=== PATIENT | female | born 1985 | race American Indian/Alaskan Native ===

== ENCOUNTER 2017-05-15 02:53 | Emergency (ER) | payer SELFPAY ==
[2017-05-15 02:58] VITALS: BP 138/92
[2017-05-15 04:23] LABS: Basophils % (Auto) 0.8 % (0.0-1.8); Eosinophils # (Auto) 0.1 K/mm3 (0.0-0.4); Eosinophils % (Auto) 1.6 % (0.0-4.3); Hemoglobin 12.2 gm/dl (10.1-14.3); Lymphocytes # (Auto) 1.9 K/mm3 (1.2-5.4); Lymphocytes % (Auto) 33.2 % (13.4-35.0); Mean Corpuscular HGB Conc 34 % (30-34); Mean Corpuscular Hemoglobin 33 pg (28-32); Mean Corpuscular Volume 97 fl (79-97); Monocytes # (Auto) 0.4 K/mm3 (0.0-0.8); Monocytes % (Auto) 7.3 % (0.0-7.3); Platelet Count 300 K/mm3 (140-440); Red Blood Count 3.72 M/mm3 (3.65-5.03); Red Cell Distribution Width 13.6 % (13.2-15.2)
[2017-05-15 07:55] LABS: Bacteria,Urine 1+ /HPF (Negative); Bilirubin,Urine NEG (Negative); Blood,Urine NEG (Negative); Color,Urine Colorless (Yellow); Nitrite,Urine NEG (Negative); Protein,Urine <15 mg/dL mg/dL (Negative); Urobilinogen,Urine < 2.0 mg/dL (<2.0)
== END 2017-05-15 05:07 | disposition left against medical advice (07) ==
LOC: ED 02:53
DX: R10.9 Unspecified abdominal pain (principal); Z53.21 Procedure and treatment not carried out due to patient leaving prior to being seen by health care provider
CPT/HCPCS: 36415; 81001; 84702; 85025; 86850; 86900; 86901

== ENCOUNTER 2021-07-04 21:54 | Inpatient (IN) | payer OTHER ==
[2021-07-04] MEDS ORDERED: LACTATED RINGERS 1,000 ML IV SCH (22:15)
[2021-07-04] MEDS ORDERED: ACETAMINOPHEN 325 MG TAB PO PRN (22:15)
[2021-07-04] MEDS ORDERED: LOPERAMIDE 2 MG CAP PO PRN (22:15)
[2021-07-04] MEDS ORDERED: BUTORPHANOL 2 MG/1 ML INJ IV PRN (22:15)
[2021-07-04] MEDS ORDERED: fentaNYL 100 MCG/2 ML INJ IV PRN (22:15)
[2021-07-04] MEDS ORDERED: MINERAL OIL 30 ML ORAL LIQD PO PRN (22:15)
[2021-07-04] MEDS ORDERED: LACTATED RINGERS 1,000 ML ONE (22:15)
[2021-07-04] MEDS ORDERED: OXYTOCIN 10 UNIT/1 ML INJ IM PRN (22:15)
[2021-07-04] MEDS ORDERED: METHYLERGONOVINE MALEATE 0.2 MG/ML VIAL IM PRN (22:15)
[2021-07-04] MEDS ORDERED: ePHEDrine SULFATE 50 MG/1 ML INJ IV PRN (22:15)
[2021-07-04] MEDS ORDERED: miSOPROStol 200 MCG TAB PR PRN (22:15)
[2021-07-04] MEDS ORDERED: LIDOCAINE (2%) 20 MG/1 ML VIAL 20 ML MDV INFILTRATI ONE (22:15)
[2021-07-04] MEDS ORDERED: TERBUTALINE 1 MG/1 ML INJ SUB-Q PRN (22:15)
[2021-07-04] MEDS ORDERED: OXYTOCIN DRIP 30,000 MILLIUNITS/500 ML BAG IV ONE (22:15)
[2021-07-04] MEDS ORDERED: CARBOPROST TROMETHAMINE 250 MCG/1 ML INJ IM PRN (22:15)
--- NOTE | 2021-07-04 22:56 | History and Physical Report ---
History of Present Illness Date of examination: 07/04/21 Date of admission: 07/04/21 Chief complaint: Painful ctxs History of present illness: 89 yo, @ 39.2 wks, initiated care with [place] [facility] @ 13wks gestation. Her care has been complicated by inadequate care with only 2 visits (lapse between 13 - 35 wks), HSV2, anemia and history of C/S x 1 with two . She presented to [facility] via medic with reports of frequent painful ctxs and was found to have advanced cervical dilation of 10. Reports positive FM. Denies VB or LOF. Labs: A+, antibody negative; rubella immune; VDRL non-reactive; urine culture negative; HBsAg negative HIV negative; Hep C negative; GC/Chlamydia/Trich negative; 1 hr gtt 109; GBS unknown. Past History Past Medical History: other (anemia) Past Surgical History: section [employer]IAN History: chlamydia, herpes Family/Genetic History: diabetes, hypertension, cancer, other (kidney failure, hypercholesterolemia; arthritis) - Obstetrical History Expected Date of Delivery: 07/09/21 Actual Gestation: 39 Week(s) 2 Day(s) : 6 Para: 3 Hx # Term Pregnancies: 3 Number of Pregnancies: 0 Spontaneous Abortions: 2 Induced : 0 Number of Living Children: 3 #1 Infant Gender: Male year: 2,[birth year] Birthweight: 3.77 kg Method of Delivery: Vaginal Complications: none #2 Infant Gender: Male year: 2,014 Birthweight: 3.09 kg Method of Delivery: Vaginal Gestational age at delivery: 37 Complications: none #3 Gender: Male year: 2,018 Birthweight: 2.92 kg Method of Delivery: Medications and Allergies Allergies Allergy/AdvReac Type Severity Reaction Status Date / Time No Known Allergies Allergy Verified 12/22/13 13:48 Home Medications Medication Instructions Recorded Confirmed Last Taken Type Valacyclovir HCl [Valacyclovir] 1 tab PO BID 12/22/13 11/08/17 12/22/13 14:30 History Ferrous Sulfate [Feosol 325 MG tab] 325 mg PO BID #60 tablet 12/23/13 11/08/17 Unknown Rx Ibuprofen [Motrin 600 MG tab] 600 mg PO Q6HR PRN #30 tablet 12/23/13 11/08/17 Unknown Rx Vits96/Iron Fum/Folic 1 each PO QDAY #30 tablet 12/23/13 11/08/17 11/07/17 10:30 Rx [ Tablet] oxyCODONE /ACETAMINOPHEN [Percocet 1 tab PO Q6H PRN #30 tablet 12/23/13 11/08/17 Unknown Rx 5/325 mg] Ferrous Sulfate 325 mg PO BID #60 tablet. 11/08/17 Unknown Rx Ibuprofen [Motrin] 600 mg PO Q8H PRN #30 tablet 11/08/17 Unknown Rx oxyCODONE /ACETAMINOPHEN [Percocet 1 tab PO Q6HR PRN #30 tablet 11/08/17 Unknown Rx 5/325] Docusate Sodium [Colace] 100 mg PO BID PRN #60 capsule 11/10/17 Unknown Rx Ferrous Sulfate [Feosol 325 MG tab] 325 mg PO BID #60 tablet 11/10/17 Unknown Rx Ibuprofen [Motrin] 800 mg PO Q8HR PRN #60 tablet 11/10/17 Unknown Rx oxyCODONE /ACETAMINOPHEN [Percocet 1 tab PO Q6HR PRN #45 tablet 11/10/17 Unknown Rx 5/325] Active Meds: Active Medications Acetaminophen (Acetaminophen 325 Mg Tab) 650 mg PO Q4H PRN PRN Reason: Pain, Mild (1-3) Butorphanol Tartrate (Butorphanol 2 Mg/1 Ml Inj) 1 mg IV Q2H PRN PRN Reason: Pain, Moderate(4-6) LABOR PAIN Carboprost Tromethamine (Carboprost Tromethamine 250 Mcg/1 Ml Inj) 250 mcg IM ONCE PRN PRN Reason: Uterine Bleeding Ephedrine Sulfate (Ephedrine Sulfate 50 Mg/1 Ml Inj) 10 mg IV Q2M PRN PRN Reason: Hypotension Fentanyl (Fentanyl 100 Mcg/2 Ml Inj) 100 mcg IV Q2H PRN PRN Reason: Pain,Severe (7-10) LABOR PAIN Oxytocin/Sodium Chloride (Pitocin/Ns 30 Unit/500ml) 30 units in 500 mls @ 2 mls/hr IV TITR ROMY; Protocol Lactated Ringer's (Lactated Ringers) 1,000 mls @ 125 mls/hr IV DIRECT ROMY Oxytocin/Sodium Chloride (Pitocin/Ns 30 Unit/500ml) 30 units in 500 mls @ 40 mls/hr IV TITR ROMY; Protocol Loperamide HCl (Loperamide 2 Mg Cap) 2 mg PO ONCE PRN PRN Reason: give with Hemabate Methylergonovine Maleate (Methylergonovine Maleate 0.2 Mg/Ml Vial) 0.2 mg IM ONCE PRN PRN Reason: Uterine Bleeding Mineral Oil (Mineral Oil 30 Ml Oral Liqd) 30 ml PO QHS PRN PRN Reason: Constipation Misoprostol (Misoprostol 200 Mcg Tab) 800 mcg VA ONCE PRN PRN Reason: Uterine Bleeding Oxytocin (Oxytocin 10 Unit/1 Ml Inj) 10 unit IM ONCE PRN PRN Reason: Uterine Bleeding Terbutaline Sulfate (Terbutaline 1 Mg/1 Ml Inj) 0.25 mg SUB-Q ONCE PRN PRN Reason: Hyperstimulation/Hypertonicity - Vital Signs Vital signs: Vital Signs Pulse Pulse Ox 106 H 97 07/04/21 22:08 07/04/21 22:08 Temp Pulse Resp BP Pulse Ox 96 H 127/76 97 07/04/21 22:48 07/04/21 22:48 07/04/21 22:48 - Physical Exam Breasts: Positive: normal Cardiovascular: Regular rate Lungs: Positive: Normal air movement Genitourinary (Female): Positive: normal external genitalia, normal perenium Uterus: Positive: enlarged Extremities: Positive: edema Deep Tendon Reflex Grade: Normal +2 Results All other labs normal. Assessment and Plan - Patient Problems (1) Active labor at term Current Visit: Yes Status: Acute Plan to address problem: Admit to L&D Pain meds as desired Anticipate (2) GBS screening not performed Current Visit: Yes Status: Acute Plan to address problem: Inadequate treatment (3) HSV-2 seropositive Current Visit: Yes Status: Acute Plan to address problem: No lesions or prodrome noted
[2021-07-04] MEDS ORDERED: OXYTOCIN DRIP 30 UNITS/500 ML BAG IV SCH ×2 (23:00)
[2021-07-04] MEDS ORDERED: LANOLIN/ZINC/DIMETHICONE (LANSINOH) 7 GM TP PRN (23:04)
[2021-07-04] MEDS ORDERED: ONDANSETRON 4 MG/2 ML INJ IV PRN (23:04)
[2021-07-04] MEDS ORDERED: oxyCODONE /ACETAMINOPHEN 5-325MG TAB PO PRN (23:04)
[2021-07-04] MEDS ORDERED: WITCH HAZEL/ GLYCERIN PAD TP PRN (23:04)
[2021-07-04] MEDS ORDERED: MAGNESIUM HYDROXIDE (MOM) ORAL LIQD UDC PO PRN (23:04)
[2021-07-04] MEDS ORDERED: diphenhydrAMINE 25 MG CAP PO PRN (23:04)
[2021-07-04] MEDS ORDERED: PROMETHAZINE 25 MG TAB PO PRN (23:04)
--- NOTE | 2021-07-04 23:12 | Procedure Note ---
OB Delivery Note - Delivery Date of Delivery: 07/04/21 (2234) Surgeon: NAHUM CERVANTES (ANDERSONM) Estimated blood loss: 200cc - Vaginal Delivery presentation: vertex Delivery position: OA (CHINA) Intrapartum events: meconium, precipitous labor- <3hr Delivery induction: none Delivery augmentation: rupture of membranes (AROM @ 2230, thick meconium) Delivery monitor: external FHT, external uterine Route of delivery: Delivery placenta: spontaneous (2238, hi) Delivery cord: 3 umbilical vessels Episiotomy: none Delivery laceration: none Anesthesia: none Delivery comments: of viable, meconium stained, quiet female infant. Spontaneous cry produced with drying and manual stimulation. Cord double clamped and cut by myself, baby handed over to awaiting MARTHA nurse. Placenta spontaneously delivered, hi, disposed per hospital policy. Uterus firm @ U-2, hemostasis maintained. Perineum intact. Mother and baby safe, stable and left in care of RN. - A at 1 minute: 8 at 5 minutes: 9 Infant Gender: Female (Weight: 3100 gms (6lbs 13 ozs) 20 inches)
[2021-07-04] MEDS: IBUPROFEN 800 MG TAB PO SCH (23:18)
[2021-07-05 01:10] LABS: Hematocrit 31.3 % (30.3-42.9); Mean Corpuscular HGB Conc 32 % (30-34); Mean Corpuscular Volume 89 fl (79-97); Platelet Count 231 K/mm3 (140-440); Red Blood Count 3.51 M/mm3 (3.65-5.03); Red Cell Distribution Width 15.3 % (13.2-15.2)
[2021-07-05] MEDS: IBUPROFEN 800 MG TAB PO SCH ×4 (06:25→23:45)
--- NOTE | 2021-07-05 09:01 | Progress Note ---
Assessment and Plan - Patient Problems (1) Vaginal after Current Visit: Yes Status: Acute Plan to address problem: Patient doing well Routine care Subjective - Subjective Date of service: 07/05/21 Interval history: Patient doing well. She is currently without any complaints. Pain is well controlled. Patient reports: appetite normal, voiding normally, pain well controlled [place]: doing well Objective - Vital Signs Latest vital signs: Vital Signs Temp Pulse Resp BP BP Pulse Ox 07/05/21 06:25 18 07/05/21 04:40 98.0 F 83 20 130/77 96 07/05/21 02:04 18 07/04/21 23:38 94 H 99 07/04/21 23:33 91 H 98 07/04/21 23:28 89 138/86 98 07/04/21 23:23 93 H 100 07/04/21 23:18 97.4 F L 93 H 19 99 07/04/21 23:13 94 H 99 07/04/21 23:08 98 H 139/78 98 07/04/21 23:03 98 H 97 07/04/21 22:58 97 H 96 07/04/21 22:53 98 H 98 07/04/21 22:48 96 H 127/76 97 07/04/21 22:43 98 H 98 07/04/21 22:38 94 H 98 07/04/21 22:33 88 100 07/04/21 22:28 88 98 07/04/21 22:23 97 H 99 07/04/21 22:18 99 H 99 07/04/21 22:13 102 H 98 07/04/21 22:11 112 H 125/90 07/04/21 22:08 106 H 97 Intake and Output 07/04/21 07/05/21 07/05/21 22:59 06:59 14:59 Intake Total 120 Output Total 400 150 Balance -280 -150 Intake: Oral 120 Output: Urine 400 150 Void 400 150 Other: Total, Intake Amount 120 Total, Output Amount 200 150 Weight 91.626 kg Estimated Blood Loss 200 - Labs Labs: Abnormal lab results 07/04/21 Range/Units 22:08 RBC 3.51 L (3.65-5.03) M/mm3 Hgb 10.0 L (10.1-14.3) gm/dl RDW 15.3 H (13.2-15.2) %
[2021-07-05] MEDS: PRENATAL VIT27-FE FUMARATE-FOLIC ACID VIT TAB PO SCH (10:37)
[2021-07-05 13:15] LABS: Hemoglobin 9.5 gm/dl (10.1-14.3)
[2021-07-06] MEDS: IBUPROFEN 800 MG TAB PO SCH ×3 (05:12→18:12)
[2021-07-06] MEDS ORDERED: TETANUS,DIPH,PERTUSS(ACELL) VACCINE 0.5 ML SYRINGE IM ONE (06:00)
[2021-07-06] MEDS: PRENATAL VIT27-FE FUMARATE-FOLIC ACID VIT TAB PO SCH (10:28)
[2021-07-06] MEDS ORDERED: FLU VACC QUAD 2021-22(6MOS UP)/PF 60 MCG/0.5 ML SYRINGE IM ONE (12:00)
--- NOTE | 2021-07-06 14:13 | Discharge Summary ---
Providers - Providers Date of Admission: 07/04/21 22:15 Date of discharge: 07/06/21 (1900) Attending physician: DAYTON OSEGUERA 07/04/21 23:06 Consult to [employer] [place] [CONS] Routine Reason For Exam: assistance with , ELIZABETH 07/05/21 07:24 Consult to Case Management [CONS] Routine Services Needed at Discharge: Other Notified:: Yes Comment:: limited [facility] Primary care physician: DAYTON OSEGUERA Hospitalization Reason for admission: active labor Delivery: Episiotomy: none Laceration: none Other procedures: none complications: none Discharge diagnosis: other (anemia), baby: female Hospital course: 36 yo, @ 39.2 wks, initiated care with [place] [facility] @ 13wks gestation. Her care has been complicated by inadequate care with only 2 visits (lapse between 13 - 35 wks), HSV2, anemia and history of C/S x 1 with two . She presented to [facility] via medic with reports of frequent painful ctxs and was found to have advanced cervical dilation of 10. Reports positive FM. Denies VB or LOF. Delivered viable famale via . course has been uneventful and has met discharge criteria on PPD#2. Condition at discharge: Good Disposition: 01 HOME / SELF CARE / HOMELESS - Discharge Diagnoses (1) GBS screening not performed Status: Acute (2) HSV-2 seropositive Status: Acute (3) Vaginal after Status: Acute Plan - Discharge Medications Prescriptions: Ibuprofen [Motrin 800 MG tab] 800 mg PO Q8HR 7 Days #21 tablet - Provider Discharge Summary Activity: routine, no sex for 6 weeks, no heavy lifting 4 weeks, no strenuous exercise Diet: other (Iron rich diet) Instructions: routine Additional instructions: [] Smoking cessation referral if applicable(refer to patient education folder for contact #) [] Refer to [facility] Booklet Call your doctor immediately for: * Fever > 100.5 * Heavy vaginal bleeding ( >1 pad per hour) * Severe persistent headache * Shortness of breath * Reddened, hot, painful area to leg or breast - Follow up plan Follow up: DAYTON OSEGUERA MD [Primary Care Provider] - 6 Weeks Forms: [facility] Discharge Summary
[2021-07-06 22:59] VITALS: BP 138/78
== END 2021-07-06 23:50 | disposition home or self-care (01) | DRG 774 ==
LOC: TRG 21:54 → APU 21:56 → LD 22:04 → TRG 22:15 → OB 07-05 00:50
PROVIDERS: ADMIT Obstetrics & Gynecology; ATTEND Obstetrics & Gynecology
PROC: 10E0XZZ Delivery of Products of Conception, External Approach (ICD-10-PCS; principal; 2021-07-04)
PROC: 3E0234Z Introduction of Serum, Toxoid and Vaccine into Muscle, Percutaneous Approach (ICD-10-PCS; 2021-07-06)
DX: O77.0 Labor and delivery complicated by meconium in amniotic fluid (principal); O98.32 Other infections with a predominantly sexual mode of transmission complicating childbirth; Z37.0 Single live birth; Z3A.39 39 weeks gestation of pregnancy; A60.00 Herpesviral infection of urogenital system, unspecified; O62.3 Precipitate labor; O99.02 Anemia complicating childbirth; O34.211 Maternal care for low transverse scar from previous cesarean delivery; Z23 Encounter for immunization
CPT/HCPCS: 36415; 59025; 85014; 85018; 85027; 86592; 86850; 86900; 86901; 90471; 90686; 90715; G0378; G0008; U0003

== ENCOUNTER 2021-07-12 03:55 | Inpatient (IN) | payer OTHER ==
[2021-07-12] MEDS ORDERED: predniSONE 20 MG TAB PO ONE (04:07)
[2021-07-12] MEDS ORDERED: IPRATROPIUM/ALBUTEROL SULFATE 3 ML AMPUL.NEB IH ONE (04:07)
--- NOTE | 2021-07-12 04:11 | Emergency Department Report ---
<GRISEL WILSON - Last Filed: 07/12/21 14:28> ED Shortness of Breath HPI - General Chief Complaint: Dyspnea/Respdistress Stated Complaint: RAVEN Time Seen by Provider: 07/12/21 04:04 - Related Data Previous Rx's Medication Instructions Recorded Last Taken Type RX: Ibuprofen [Motrin 800 MG tab] 800 mg PO Q8HR 7 Days #21 tablet 07/06/21 Unknown Rx Allergies Allergy/AdvReac Type Severity Reaction Status Date / Time No Known Allergies Allergy Verified 07/12/21 14:11 ED Past Medical Hx - Medications Home Medications: Home Medications Medication Instructions Recorded Confirmed Last Taken Type RX: Ibuprofen [Motrin 800 MG tab] 800 mg PO Q8HR 7 Days #21 tablet 07/06/21 07/12/21 Unknown Rx ED Medical Decision Making - Lab Data Result diagrams: 07/12/21 04:10 07/12/21 04:10 Lab Results 07/12/21 07/12/21 07/12/21 Range/Units 04:10 04:10 04:17 WBC 6.4 (4.5-11.0) K/mm3 RBC 4.01 (3.65-5.03) M/mm3 Hgb 11.3 (10.1-14.3) gm/dl Hct 36.0 (30.3-42.9) % MCV 90 (79-97) fl MCH 28 (28-32) pg MCHC 31 (30-34) % RDW 16.2 H (13.2-15.2) % Plt Count 270 (140-440) K/mm3 Lymph % (Auto) 17.3 (13.4-35.0) % [place] % (Auto) 5.4 (0.0-7.3) % Eos % (Auto) 2.9 (0.0-4.3) % Baso % (Auto) 0.7 (0.0-1.8) % Lymph # (Auto) 1.1 L (1.2-5.4) K/mm3 [place] # (Auto) 0.3 (0.0-0.8) K/mm3 Eos # (Auto) 0.2 (0.0-0.4) K/mm3 Baso # (Auto) 0.0 (0.0-0.1) K/mm3 Seg Neutrophils % 73.7 H (40.0-70.0) % Seg Neutrophils # 4.7 (1.8-7.7) K/mm3 Sodium 138 (137-145) mmol/L Potassium 3.5 L (3.6-5.0) mmol/L Chloride 103.3 (98-107) mmol/L Carbon Dioxide 21 L (22-30) mmol/L Anion Gap 17 mmol/L BUN 11 (7-17) mg/dL Creatinine 0.6 (0.6-1.2) mg/dL Estimated GFR > 60 ml/min BUN/Creatinine Ratio 18 % Glucose 119 H (65-100) mg/dL Uric Acid (3.5-7.6) mg/dL Calcium 8.9 (8.4-10.2) mg/dL Troponin T < 0.010 (0.00-0.029) ng/mL NT-Pro-B Natriuret Pep 3616 H (0-450) pg/mL Urine Color (Yellow) Urine Turbidity (Clear) Urine pH (5.0-7.0) Ur Specific [place] (1.003-1.030) Urine Protein (Negative) mg/dL Urine Glucose (UA) (Negative) mg/dL Urine Ketones (Negative) mg/dL Urine Blood (Negative) Urine Nitrite (Negative) Urine Bilirubin (Negative) Urine Urobilinogen (<2.0) mg/dL Ur Leukocyte Esterase (Negative) Urine WBC (Auto) (0.0-6.0) /HPF Urine RBC (Auto) (0.0-6.0) /HPF U Epithel Cells (Auto) (0-13.0) /HPF Urine Bacteria (Auto) (Negative) /HPF 07/12/21 07/12/21 Range/Units 05:33 05:35 WBC (4.5-11.0) K/mm3 RBC (3.65-5.03) M/mm3 Hgb (10.1-14.3) gm/dl Hct (30.3-42.9) % MCV (79-97) fl MCH (28-32) pg MCHC (30-34) % RDW (13.2-15.2) % Plt Count (140-440) K/mm3 Lymph % (Auto) (13.4-35.0) % [place] % (Auto) (0.0-7.3) % Eos % (Auto) (0.0-4.3) % Baso % (Auto) (0.0-1.8) % Lymph # (Auto) (1.2-5.4) K/mm3 [place] # (Auto) (0.0-0.8) K/mm3 Eos # (Auto) (0.0-0.4) K/mm3 Baso # (Auto) (0.0-0.1) K/mm3 Seg Neutrophils % (40.0-70.0) % Seg Neutrophils # (1.8-7.7) K/mm3 Sodium (137-145) mmol/L Potassium (3.6-5.0) mmol/L Chloride (98-107) mmol/L Carbon Dioxide (22-30) mmol/L Anion Gap mmol/L BUN (7-17) mg/dL Creatinine (0.6-1.2) mg/dL Estimated GFR ml/min BUN/Creatinine Ratio % Glucose (65-100) mg/dL Uric Acid 4.9 (3.5-7.6) mg/dL Calcium (8.4-10.2) mg/dL Troponin T (0.00-0.029) ng/mL NT-Pro-B Natriuret Pep (0-450) pg/mL Urine Color Yellow (Yellow) Urine Turbidity Hazy (Clear) Urine pH 7.0 (5.0-7.0) Ur Specific [place] 1.012 (1.003-1.030) Urine Protein 30 mg/dl (Negative) mg/dL Urine Glucose (UA) Neg (Negative) mg/dL Urine Ketones Neg (Negative) mg/dL Urine Blood Lg (Negative) Urine Nitrite Neg (Negative) Urine Bilirubin Neg (Negative) Urine Urobilinogen 2.0 (<2.0) mg/dL Ur Leukocyte Esterase Mod (Negative) Urine WBC (Auto) 28.0 H (0.0-6.0) /HPF Urine RBC (Auto) 136.0 (0.0-6.0) /HPF U Epithel Cells (Auto) 5.0 (0-13.0) /HPF Urine Bacteria (Auto) 1+ (Negative) /HPF - Radiology Data Radiology results: report reviewed - Medical Decision Making Signout received from Dr. Kaiser. This is a 36-year-old G6, P4 female who is status post uncomplicated vaginal delivery on July 04 who presented with chest tightness, lower extremity edema, and shortness of breath with hypoxia. Work-up revealed findings consistent with respiratory failure with pulmonary edema and elevated blood pressure consistent with preeclampsia with evidence of new onset CHF. Patient was given 2 g of magnesium, 10 mg of labetalol, 60 mg of prednisone, and DuoNeb breathing treatments. She is currently awaiting further work-up with labs and CTA of the chest to assess for evidence of pulmonary embolism. Labs reveal no significant leukocytosis or anemia. Kidney function is normal and there is hypokalemia which is mild with potassium 3.5 which we will replete. Troponin is negative. BNP is elevated at 3616. Urinalysis reveals findings consistent with hematuria but also possible urinary tract infection with moderate leuk esterase. I have ordered blood cultures and 1 dose of IV ceftriaxone. On repeat assessment at 6:19 AM, patient lying comfortably in the bed. She seems slightly dyspneic but is not in respiratory distress. Her blood pressure significantly improved at 113/79. I explained the current working diagnosis as well as the plan for admission to [facility] for further work-up and management and the patient expressed understanding and agreement with this plan. Patient returned from CT angiogram of the chest and at 6:55 AM I reassessed her again noted that she was hypoxic with oxygen saturation of 81% on 3 L via nasal cannula. The patient was very dyspneic and in respiratory distress. Physical examination revealed diffuse rales bilaterally. Her blood pressure is now elevated in the 180s over 130s. Given worsening symptoms with evidence of ongoing hypertension we will initiate BiPAP drip titrated to blood pressure which will also help to treat pulmonary edema. We will give 40 mg of IV Lasix and order ABG as well as BiPAP. At 7:02 AM I spoke with Dr. Devon Miranda of [employer] [facility] who was the patient's [employer]EL [employer] who delivered her here at this hospital on July 04. We discussed details of the case as well as current management plans and diagnostic results as well as plan for admission to [facility] service but with patient going to the critical care unit given initiation of BiPAP and titratable nitroglycerin drip with possible medicine consult per [employer] preference. Dr. Miranda expressed agreement with this plan and accepts the patient for admission and will assume care. At 7:28 AM I spoke with Dr. Stock of critical care medicine. He agrees with current management and accepts the patient to the critical care unit ED Disposition Clinical Impression: Acute respiratory failure with hypoxia, Preeclampsia in period, cardiomyopathy, New onset of congestive heart failure, Hypertensive emergency, Pulmonary edema, Hypokalemia, UTI (urinary tract infection) Disposition: ADMITTED INPATIENT Condition: Fair <KEITH KAISER - Last Filed: 07/12/21 23:33> ED Shortness of Breath HPI - General Source: patient, EMS Mode of arrival: Stretcher Limitations: No Limitations - History of Present Illness Initial Comments: Chief complaint: Shortness of breath HPI: This 36-year-old female with history of tobacco use who is 7 days . She has had shortness of breath since yesterday morning. Oxygen saturations 88% on room air. She has dry cough. She is not vaccinated against COVID-19. She denies chest pain. She just feels tight in her chest. She reports bilateral lower extremity swelling. MD Complaint: shortness of breath, cough -: Gradual, days(s) (Yesterday morning) Severity: severe Consistency: constant Improves With: nothing Worsens With: nothing Known History Of: other (Secondary ) Associated Symptoms: cough, other (Lower extremity swelling) Treatments Prior to Arrival: none, other (EMS transport) ED Review of Systems ROS: Stated complaint: RAVEN Other details as noted in HPI Comment: All other systems reviewed and negative Constitutional: denies: fever, malaise Eyes: denies: as per HPI Respiratory: cough, shortness of breath. denies: wheezing Cardiovascular: denies: chest pain Gastrointestinal: denies: abdominal pain, nausea, vomiting ED Past Medical Hx - Past Medical History Previous Medical History?: Yes Hx Hypertension: No Hx Congestive Heart Failure: No Hx Diabetes: No Hx Deep Vein Thrombosis: No Hx Renal Disease: No Hx Sickle Cell Disease: No Hx Seizures: No Hx Asthma: No Hx COPD: No Hx HIV: No Additional medical history: Preeclampsia during - Surgical History Past Surgical History?: Yes - Social History Smoking Status: Never Smoker Substance Use Type: None ED Physical Exam - General Limitations: No Limitations General appearance: alert, in distress, other (Obvious work of breathing, unable to complete full sentences) - Head Head exam: Present: atraumatic, normocephalic - Eye Eye exam: Present: normal appearance - ENT ENT exam: Present: mucous membranes moist - Neck Neck exam: Present: normal inspection, full ROM - Respiratory Respiratory exam: Present: normal lung sounds bilaterally. Absent: respiratory distress, wheezes, rales, rhonchi - Cardiovascular Cardiovascular Exam: Present: regular rate, normal rhythm, normal heart sounds. Absent: systolic murmur, diastolic murmur, rubs, gallop - GI/Abdominal GI/Abdominal exam: Present: soft, normal bowel sounds. Absent: distended, tenderness, guarding, rebound - Extremities Exam Extremities exam: Present: normal inspection. Absent: full ROM, tenderness, normal capillary refill, pedal edema, joint swelling, calf tenderness - Neurological Exam Neurological exam: Present: alert, oriented X3 - Psychiatric Psychiatric exam: Present: normal affect, normal mood - Skin Skin exam: Present: warm, dry, intact, normal color. Absent: rash ED Course Vital Signs 07/12/21 07/12/21 07/12/21 03:58 04:23 05:42 Temperature 98.9 F Pulse Rate 95 H 91 H Respiratory 22 Rate Blood Pressure 165/112 Blood Pressure 164/117 [Left] O2 Sat by Pulse 99 96 Oximetry 07/12/21 07/12/21 07/12/21 06:23 07:29 07:30 Temperature 98 F Pulse Rate 83 82 79 Respiratory 25 H 22 25 H Rate Blood Pressure 169/98 Blood Pressure 113/79 152/102 [Left] O2 Sat by Pulse 96 99 98 Oximetry 07/12/21 07/12/21 07/12/21 07:33 07:46 08:00 Temperature Pulse Rate 77 84 Respiratory 25 H 24 Rate Blood Pressure 163/114 162/108 Blood Pressure [Left] O2 Sat by Pulse 97 99 99 Oximetry 07/12/21 07/12/21 07/12/21 08:10 08:16 08:19 Temperature 98.2 F Pulse Rate 90 Respiratory 22 18 Rate Blood Pressure 131/91 Blood Pressure [Left] O2 Sat by Pulse 96 Oximetry 07/12/21 07/12/21 07/12/21 08:30 08:46 09:00 Temperature Pulse Rate 85 85 82 Respiratory 23 25 H 22 Rate Blood Pressure 156/113 156/113 151/103 Blood Pressure [Left] O2 Sat by Pulse 99 98 97 Oximetry 07/12/21 07/12/21 09:09 09:15 Temperature Pulse Rate 81 83 Respiratory 20 23 Rate Blood Pressure 154/92 136/99 Blood Pressure [Left] O2 Sat by Pulse 97 95 Oximetry ED Medical Decision Making - Lab Data Result diagrams: 07/12/21 04:10 07/12/21 13:44 - EKG Data 07/12/21 04:25 EKG obtained 0409 EKG interpreted by me Rate 93 bpm leftward axis prolonged QTC prolonged NE interval no ST elevation incomplete right bundle block spot nonspecific T wave pattern - Radiology Data Radiology results: report reviewed Patient Name: WM GRUBER Gender: Female Date of : 1985 Referring Provider: KEITH KAISER Organization: [facility] Accession Number: [id number] Requested Date: July 12, 2021 04:07 Report Status: Final Requested Procedure: 1 Procedure Description: XR chest 1V ap Modality: XR Findings Reporting MD: Aden Blackman Dictation Time: July 12, 2021 03:44 Technical Supervisor: Not available Swatch Checker Date: CHEST 1 VIEW INDICATION: shortness of breath. COMPARISON: None. FINDINGS: Support devices: None. Heart: Upper limits of normal. Lungs/Pleura: There are diffuse bilateral pulmonary opacities. I suspect there are small effusions. No pneumothorax. IMPRESSION: 1. Diffuse bilateral pulmonary opacities could be seen in the setting of pulmonary edema but are nonspecific. Signer Name: Aden Blackman MD Signed: 07/12/2021 3:44 AM Workstation Name: [id number] - Medical Decision Making 1. Acute respiratory failure due to cardiomyopathy: Patient requiring 4 L oxygen via nasal cannula. 2. preeclampsia: IV labetalol and IV magnesium provided emergency department. I reviewed vital signs from recent admission during delivery in labor, all systolic blood pressure readings were below 140 mmHg. Critical Care Time: Yes Critical care time in (mins) excluding proc time.: 40 Critical care attestation.: If time is entered above; I have spent that time in minutes in the direct care of this critically ill patient, excluding procedure time. 40 minutes of critical care time excluding procedures were used in the care of the patient. I came immediately to the bedside upon patient's arrival. I obtained history from EMS at the bedside. I discussed treatment plan with the nursing team members. I reviewed electronic record. Patient required multiple interventions and reassessments. ED Disposition Is pt being admited?: Yes Does the pt Need Aspirin: No
--- NOTE | 2021-07-12 04:48 | XRay Report ---
CHEST 1 VIEW INDICATION: shortness of breath. COMPARISON: None. FINDINGS: Support devices: None. Heart: Upper limits of normal. Lungs/Pleura: There are diffuse bilateral pulmonary opacities. I suspect there are small effusions. N o pneumothorax. IMPRESSION: 1. Diffuse bilateral pulmonary opacities could be seen in the setting of pulmonary edema but are nons pecific. Signer Name: Aden Blackman MD Signed: 07/12/2021 4:44 AM Workstation Name: [id number]
[2021-07-12] MEDS ORDERED: MAGNESIUM SULFATE 2 GM/50 ML BAG IV ONE (05:13)
[2021-07-12 05:55] LABS: Bacteria,Urine 1+ /HPF (Negative); Bilirubin,Urine NEG (Negative); Blood,Urine LG (Negative); Color,Urine Yellow (Yellow)
[2021-07-12 05:58] LABS: Blood Urea Nitrogen 11 mg/dL (7-17); Calcium 8.9 mg/dL (8.4-10.2); Hemolysis Index 5
[2021-07-12 05:59] LABS: Basophils % (Auto) 0.7 % (0.0-1.8); Eosinophils # (Auto) 0.2 K/mm3 (0.0-0.4); Eosinophils % (Auto) 2.9 % (0.0-4.3); Hemoglobin 11.3 gm/dl (10.1-14.3); Lymphocytes # (Auto) 1.1 K/mm3 (1.2-5.4); Lymphocytes % (Auto) 17.3 % (13.4-35.0); Mean Corpuscular HGB Conc 31 % (30-34); Mean Corpuscular Volume 90 fl (79-97); Monocytes # (Auto) 0.3 K/mm3 (0.0-0.8); Monocytes % (Auto) 5.4 % (0.0-7.3); Platelet Count 270 K/mm3 (140-440); Red Blood Count 4.01 M/mm3 (3.65-5.03); Red Cell Distribution Width 16.2 % (13.2-15.2)
[2021-07-12] MEDS ORDERED: POTASSIUM CHLORIDE ER 20 MEQ TAB PO ONE (06:02)
[2021-07-12] MEDS ORDERED: cefTRIAXone/NS 2 GM/100 ML 2 GM/100 ML BAG IV ONE (06:03)
[2021-07-12 06:19] LABS: BUN/Creatinine Ratio 18
--- NOTE | 2021-07-12 06:52 | Cat Scan Report ---
CTA CHEST WITH CONTRAST INDICATION / CLINICAL INFORMATION: Shortness of breath, Hypoxia, . TECHNIQUE: Axial CT images were obtained through the chest after injection of IV contrast. 3 plane VA P and/or 3D reconstructions were produced. All CT scans at this location are performed using CT dose reduction for ALARA by means of automated exposure control. COMPARISON: None available. FINDINGS: PULMONARY EMBOLUS: None. THORACIC AORTA: No significant abnormality. HEART: Mild cardiomegaly. CORONARY ARTERY CALCIFICATION: Absent -- None. MEDIASTINUM / ESTEFANY: No significant abnormality. PLEURA: No pleural effusion. No pneumothorax. LUNGS: There are diffuse, predominantly perihilar bilateral airspace opacities. ADDITIONAL FINDINGS: None. UPPER ABDOMEN: No acute findings. SKELETAL STRUCTURES: No significant osseous abnormality. IMPRESSION: 1. No CT evidence for pulmonary embolism. 2. Predominantly perihilar diffuse bilateral airspace opacities are concerning for pulmonary edema bu t nonspecific. Signer Name: Aden Blackman MD Signed: 07/12/2021 6:47 AM Workstation Name: [id number]
[2021-07-12] MEDS ORDERED: NITROGLYCERIN DRIP 50 MG/250 ML BOTTLE ONE (07:00)
[2021-07-12] MEDS: NITROGLYCERIN DRIP 50 MG/250 ML BOTTLE IV SCH ×3 (07:00→20:38)
[2021-07-12] MEDS ORDERED: FUROSEMIDE 40 MG/4 ML INJ IV ONE (07:08)
[2021-07-12] MEDS ORDERED: oxyCODONE /ACETAMINOPHEN 5-325MG TAB PO PRN (07:30)
[2021-07-12 07:36] LABS: ABG Base Excess -1.8 mmol/L (-2.0-3.0); ABG HCO3 22.3 mmol/L (20.0-26.0); ABG Methemoglobin 0.4 % (0.0-1.5); ABG Oxygen Saturation 95.2 % (95.0-99.0); ABG PCO2 35.7 mm Hg; ABG PH 7.414 pH Units (7.350-7.450); ABG PO2 74.7 mm Hg (80.0-90.0)
[2021-07-12] MEDS: ACETAMINOPHEN 325 MG TAB PO PRN ×2 (11:16→18:28)
--- NOTE | 2021-07-12 11:56 | History and Physical Report ---
History of Present Illness Date of examination: 07/12/21 Date of admission: 07/12/21 07:00 Past History - Obstetrical History : 6 Medications and Allergies Allergies Allergy/AdvReac Type Severity Reaction Status Date / Time No Known Allergies Allergy Verified 12/22/13 13:48 Home Medications Medication Instructions Recorded Confirmed Last Taken Type Valacyclovir HCl [Valacyclovir] 1 tab PO BID 12/22/13 07/05/21 12/22/13 14:30 History Vits96/Iron Fum/Folic 1 each PO QDAY #30 tablet 12/23/13 07/05/21 11/07/17 10:30 Rx [ Tablet] Ibuprofen [Motrin 800 MG tab] 800 mg PO Q8HR 7 Days #21 tablet 07/06/21 Unknown Rx Active Meds: Active Medications Acetaminophen (Acetaminophen 325 Mg Tab) 650 mg PO Q6H PRN PRN Reason: Pain MILD(1-3)/Fever >100.5/HONG Last Admin: 07/12/21 11:16 Dose: 650 mg Nitroglycerin/Dextrose (Tridil Drip 50mg/250ml) 50 mg in 250 mls @ 3 mls/hr IV TITR ROMY; Protocol Last Titration: 07/12/21 09:30 Dose: 150 mcg/min, 45 mls/hr Oxycodone/Acetaminophen (Oxycodone /Acetaminophen 5-325mg Tab) 1 tab PO Q6H PRN PRN Reason: Pain, Moderate (4-6) Last Admin: 07/12/21 08:19 Dose: 1 tab Sodium Chloride (Sodium Chloride 0.9% 10 Ml Flush Syringe) 10 ml IV BID ROMY Sodium Chloride (Sodium Chloride 0.9% 10 Ml Flush Syringe) 10 ml IV PRN PRN PRN Reason: LINE FLUSH - Vital Signs Vital signs: Vital Signs Temp Pulse Resp BP Pulse Ox 98.9 F 95 H 22 164/117 99 07/12/21 03:58 07/12/21 03:58 07/12/21 03:58 07/12/21 03:58 07/12/21 03:58 Temp Pulse Resp BP Pulse Ox 97.7 F 76 21 133/89 99 07/12/21 10:30 07/12/21 11:10 07/12/21 11:10 07/12/21 11:10 07/12/21 11:10 Results Result Diagrams: 07/12/21 04:10 07/12/21 04:10 Abnormal lab results 07/12/21 07/12/21 07/12/21 Range/Units 04:10 04:10 04:17 RDW 16.2 H (13.2-15.2) % Lymph # (Auto) 1.1 L (1.2-5.4) K/mm3 Seg Neutrophils % 73.7 H (40.0-70.0) % ABG pO2 (80.0-90.0) mm Hg ABG Hemoglobin (12.0-16.0) gm/dl Oxyhemoglobin (95.0-99.0) % Potassium 3.5 L (3.6-5.0) mmol/L Carbon Dioxide 21 L (22-30) mmol/L Glucose 119 H (65-100) mg/dL Magnesium (1.7-2.3) mg/dL NT-Pro-B Natriuret Pep 3616 H (0-450) pg/mL Urine WBC (Auto) (0.0-6.0) /HPF 07/12/21 07/12/21 07/12/21 Range/Units 05:35 07:05 07:17 RDW (13.2-15.2) % Lymph # (Auto) (1.2-5.4) K/mm3 Seg Neutrophils % (40.0-70.0) % ABG pO2 74.7 L (80.0-90.0) mm Hg ABG Hemoglobin 11.8 L (12.0-16.0) gm/dl Oxyhemoglobin 93.3 L (95.0-99.0) % Potassium (3.6-5.0) mmol/L Carbon Dioxide (22-30) mmol/L Glucose (65-100) mg/dL Magnesium 2.40 H (1.7-2.3) mg/dL NT-Pro-B Natriuret Pep (0-450) pg/mL Urine WBC (Auto) 28.0 H (0.0-6.0) /HPF All other labs normal.
--- NOTE | 2021-07-12 12:32 | Consultation ---
History of Present Illness Consult date: 07/12/21 Requesting physician: GRISEL WILSON Reason for consult: other (Hypertensive Urgency) History of present illness: PULMONARY/CCM CONSULT NOTE (Full dictation # [id number]) Please see dictated notes for full details Medications and Allergies Allergies Allergy/AdvReac Type Severity Reaction Status Date / Time No Known Allergies Allergy Verified 07/12/21 14:11 Home Medications Medication Instructions Recorded Confirmed Last Taken Type Ibuprofen [Motrin 800 MG tab] 800 mg PO Q8HR 7 Days #21 tablet 07/06/21 07/12/21 Unknown Rx Active Meds: Active Medications Acetaminophen (Acetaminophen 325 Mg Tab) 650 mg PO Q6H PRN PRN Reason: Pain MILD(1-3)/Fever >100.5/HONG Last Admin: 07/12/21 11:16 Dose: 650 mg Nitroglycerin/Dextrose (Tridil Drip 50mg/250ml) 50 mg in 250 mls @ 3 mls/hr IV TITR RMOY; Protocol Last Titration: 07/12/21 09:30 Dose: 150 mcg/min, 45 mls/hr Oxycodone/Acetaminophen (Oxycodone /Acetaminophen 5-325mg Tab) 1 tab PO Q6H PRN PRN Reason: Pain, Moderate (4-6) Last Admin: 07/12/21 08:19 Dose: 1 tab Sodium Chloride (Sodium Chloride 0.9% 10 Ml Flush Syringe) 10 ml IV BID ROMY Sodium Chloride (Sodium Chloride 0.9% 10 Ml Flush Syringe) 10 ml IV PRN PRN PRN Reason: LINE FLUSH Physical Examination Vital signs: Vital Signs Temp Pulse Resp BP Pulse Ox 98.9 F 95 H 22 164/117 99 07/12/21 03:58 07/12/21 03:58 07/12/21 03:58 07/12/21 03:58 07/12/21 03:58 Results - Laboratory Findings CBC and BMP: 07/13/21 08:30 07/14/21 00:54 ABG ABG pH 7.414 pH Units (7.350-7.450) 07/12/21 07:17 ABG pCO2 35.7 mm Hg 07/12/21 07:17 ABG pO2 74.7 mm Hg (80.0-90.0) L 07/12/21 07:17 ABG O2 Saturation 95.2 % (95.0-99.0) 07/12/21 07:17 Abnormal lab findings: Abnormal Labs 07/12/21 07/12/21 07/12/21 04:10 04:10 04:17 RDW 16.2 H Lymph # (Auto) 1.1 L Seg Neutrophils % 73.7 H ABG pO2 ABG Hemoglobin Oxyhemoglobin Potassium 3.5 L Carbon Dioxide 21 L Glucose 119 H Magnesium NT-Pro-B Natriuret Pep 3616 H Urine WBC (Auto) 07/12/21 07/12/21 07/12/21 05:35 07:05 07:17 RDW Lymph # (Auto) Seg Neutrophils % ABG pO2 74.7 L ABG Hemoglobin 11.8 L Oxyhemoglobin 93.3 L Potassium Carbon Dioxide Glucose Magnesium 2.40 H NT-Pro-B Natriuret Pep Urine WBC (Auto) 28.0 H
[2021-07-12] MEDS ORDERED: MAGNESIUM SULFATE 40GM/1000ML 40 GM/1,000 ML BAG IV SCH (13:00)
--- NOTE | 2021-07-12 17:38 | Electrocardiograph Report ---
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
[2021-07-12] MEDS: hydrALAZINE 20 MG/1 ML INJ IV SCH (20:36)
[2021-07-13] MEDS: hydrALAZINE 20 MG/1 ML INJ IV SCH ×4 (00:27→19:06)
--- NOTE | 2021-07-13 06:58 | Progress Note ---
Assessment and Plan Acute respiratory failure with hypoxia P/F 70 on admission Preeclampsia in period cardiomyopathy New onset of congestive heart failure Hypertensive emergency Pulmonary edema Hypokalemia -Titrate supplemental oxygen to keep SpO2 89-92% -Blood pressure control, oral antihypertensives -Magnesium per OBGYN protocol -Transthoracic echocardiogram to evaluate LVEF and pulmonary pressures -VTE prophylaxis -BIPAP qhs and prn -Trend temperature curve and WCC, will stop empiric antibiotics if urine cultures are negative -Intermittent diuretic therapy while monitoring hemodynamics, renal function and electrolyte profile -Replete potassium, keep potassium at 4 -ABG, CXR as clinically indicated Critical Care Time: Yes Critical care time in (mins) excluding proc time.: 40 Critical care attestation.: If time is entered above; I have spent that time in minutes in the direct care of this critically ill patient, excluding procedure time. 40 minutes of critical care time excluding procedures were used in the care of the patient. Subjective Date of service: 07/13/21 Interval history: Follow up fro acute hypoxemic resp failure; pre-eclampsia; morbid obesity This is a 36-year-old G6, P4 female who is status post uncomplicated vaginal delivery on July 04 who presented with chest tightness, lower extremity edema, and shortness of breath with hypoxia. Work-up revealed findings consistent with respiratory failure with pulmonary edema and elevated blood pressure consistent with preeclampsia with evidence of new onset CHF. Patient was given 2 g of magnesium, 10 mg of labetalol, 60 mg of prednisone, and DuoNeb breathing treatments. CTA was negative for PE, but perihilar infiltrates were noted. Labs reveal no significant leukocytosis or anemia. Kidney function is normal and there is hypokalemia which is mild with potassium 3.5 which we will replete. Troponin is negative. BNP is elevated at 3616. Objective - Exam Narrative Exam: Limitations: No Limitations General appearance: alert, in distress, other (Obvious work of breathing, unable to complete full sentences) - Head Head exam: Present: atraumatic, normocephalic - Eye Eye exam: Present: normal appearance - ENT ENT exam: Present: mucous membranes moist - Neck Neck exam: Present: normal inspection, full ROM - Respiratory Respiratory exam: Present: normal lung sounds bilaterally. Absent: respiratory distress, wheezes, rales, rhonchi - Cardiovascular Cardiovascular Exam: Present: regular rate, normal rhythm, normal heart sounds. Absent: systolic murmur, diastolic murmur, rubs, gallop - GI/Abdominal GI/Abdominal exam: Present: soft, normal bowel sounds. Absent: distended, tenderness, guarding, rebound - Extremities Exam Extremities exam: Present: normal inspection. Absent: full ROM, tenderness, normal capillary refill, pedal edema, joint swelling, calf tenderness - Neurological Exam Neurological exam: Present: alert, oriented X3 - Psychiatric Psychiatric exam: Present: normal affect, normal mood - Skin Skin exam: Present: warm, dry, intact, normal color. Absent: rash Vital Signs - 12hr 07/12/21 07/12/21 07/12/21 19:00 19:10 19:20 Temperature Pulse Rate 93 H 90 92 H Pulse Rate [ From Monitor] Respiratory 18 17 19 Rate Blood Pressure 117/80 126/80 126/80 O2 Sat by Pulse 99 99 99 Oximetry 07/12/21 07/12/21 07/12/21 19:30 19:40 19:50 Temperature Pulse Rate 92 H 83 84 Pulse Rate [ From Monitor] Respiratory 22 16 14 Rate Blood Pressure 126/80 125/72 125/72 O2 Sat by Pulse 100 100 99 Oximetry 07/12/21 07/12/21 07/12/21 20:00 20:10 20:20 Temperature Pulse Rate 85 85 88 Pulse Rate [ From Monitor] Respiratory 19 20 18 Rate Blood Pressure 125/72 141/77 141/77 O2 Sat by Pulse 100 100 99 Oximetry 07/12/21 07/12/21 07/12/21 20:30 20:36 20:40 Temperature Pulse Rate 88 92 H 90 Pulse Rate [ From Monitor] Respiratory 17 19 Rate Blood Pressure 141/77 118/82 118/82 O2 Sat by Pulse 99 100 Oximetry 07/12/21 07/12/21 07/12/21 20:50 21:00 21:04 Temperature Pulse Rate 93 H 108 H 107 H Pulse Rate [ From Monitor] Respiratory 23 25 H Rate Blood Pressure 132/93 136/85 126/86 O2 Sat by Pulse 98 98 Oximetry 07/12/21 07/12/21 07/12/21 21:10 21:20 21:30 Temperature Pulse Rate 109 H 110 H 103 H Pulse Rate [ From Monitor] Respiratory 25 H 22 18 Rate Blood Pressure 127/86 120/75 125/75 O2 Sat by Pulse 99 98 99 Oximetry 07/12/21 07/12/21 07/12/21 21:40 21:50 22:00 Temperature Pulse Rate 105 H 102 H 100 H Pulse Rate [ From Monitor] Respiratory 20 21 25 H Rate Blood Pressure 117/69 118/75 116/71 O2 Sat by Pulse 99 96 96 Oximetry 07/12/21 07/12/21 07/12/21 22:10 22:20 22:30 Temperature Pulse Rate 95 H 86 81 Pulse Rate [ From Monitor] Respiratory 22 18 30 H Rate Blood Pressure 107/65 102/66 112/67 O2 Sat by Pulse 95 99 100 Oximetry 07/12/21 07/12/21 07/12/21 22:40 22:50 23:00 Temperature Pulse Rate 80 72 82 Pulse Rate [ From Monitor] Respiratory 14 16 17 Rate Blood Pressure 94/58 89/48 108/61 O2 Sat by Pulse 100 100 100 Oximetry 07/12/21 07/12/21 07/12/21 23:10 23:20 23:30 Temperature Pulse Rate 76 78 70 Pulse Rate [ From Monitor] Respiratory 16 15 15 Rate Blood Pressure 108/67 110/73 101/56 O2 Sat by Pulse 100 99 100 Oximetry 07/12/21 07/12/21 07/13/21 23:40 23:50 00:00 Temperature 98.3 F Pulse Rate 70 70 81 Pulse Rate [ From Monitor] Respiratory 14 23 19 Rate Blood Pressure 99/61 97/57 104/64 O2 Sat by Pulse 100 100 100 Oximetry 07/13/21 07/13/21 07/13/21 00:10 00:20 00:30 Temperature Pulse Rate 81 85 80 Pulse Rate [ From Monitor] Respiratory 24 15 17 Rate Blood Pressure 99/63 90/55 101/62 O2 Sat by Pulse 99 99 99 Oximetry 07/13/21 07/13/21 07/13/21 00:40 00:50 01:00 Temperature Pulse Rate 81 78 79 Pulse Rate [ From Monitor] Respiratory 17 21 15 Rate Blood Pressure 98/57 94/53 106/68 O2 Sat by Pulse 97 97 97 Oximetry 07/13/21 07/13/21 07/13/21 01:11 01:21 01:30 Temperature Pulse Rate 80 77 78 Pulse Rate [ From Monitor] Respiratory 18 16 18 Rate Blood Pressure 106/68 106/68 109/62 O2 Sat by Pulse 100 99 100 Oximetry 07/13/21 07/13/21 07/13/21 01:41 01:51 02:00 Temperature Pulse Rate 79 79 76 Pulse Rate [ From Monitor] Respiratory 20 17 18 Rate Blood Pressure 109/62 109/62 106/68 O2 Sat by Pulse 100 100 99 Oximetry 07/13/21 07/13/21 07/13/21 02:11 02:21 02:30 Temperature Pulse Rate 78 82 74 Pulse Rate [ From Monitor] Respiratory 19 16 16 Rate Blood Pressure 106/68 106/68 103/70 O2 Sat by Pulse 99 98 98 Oximetry 07/13/21 07/13/21 07/13/21 02:41 02:51 03:00 Temperature Pulse Rate 76 80 74 Pulse Rate [ From Monitor] Respiratory 16 17 16 Rate Blood Pressure 103/70 103/70 106/64 O2 Sat by Pulse 99 99 99 Oximetry 07/13/21 07/13/21 07/13/21 03:11 03:21 03:30 Temperature Pulse Rate 72 81 81 Pulse Rate [ From Monitor] Respiratory 17 20 30 H Rate Blood Pressure 106/64 106/64 108/73 O2 Sat by Pulse 98 98 97 Oximetry 07/13/21 07/13/21 07/13/21 03:41 03:51 04:00 Temperature 97.4 F L Pulse Rate 84 81 83 Pulse Rate [ 85 From Monitor] Respiratory 21 17 19 Rate Blood Pressure 108/73 108/73 117/76 O2 Sat by Pulse 97 98 94 Oximetry 07/13/21 07/13/21 07/13/21 04:11 04:21 04:30 Temperature Pulse Rate 86 87 80 Pulse Rate [ From Monitor] Respiratory 25 H 21 17 Rate Blood Pressure 117/76 117/76 114/77 O2 Sat by Pulse 94 98 96 Oximetry 07/13/21 07/13/21 07/13/21 04:41 04:51 05:00 Temperature Pulse Rate 82 83 83 Pulse Rate [ From Monitor] Respiratory 21 24 19 Rate Blood Pressure 114/77 114/77 119/85 O2 Sat by Pulse 96 96 96 Oximetry 07/13/21 07/13/21 07/13/21 05:11 05:21 05:30 Temperature Pulse Rate 86 86 87 Pulse Rate [ From Monitor] Respiratory 16 19 22 Rate Blood Pressure 119/85 119/85 115/78 O2 Sat by Pulse 96 98 97 Oximetry 07/13/21 07/13/2122 05:41 05:51 06:00 Temperature Pulse Rate 85 84 85 Pulse Rate [ From Monitor] Respiratory 21 19 21 Rate Blood Pressure 115/78 115/78 126/91 O2 Sat by Pulse 95 96 96 Oximetry 07/13/21 07/13/21 07/13/21 06:08 06:11 06:21 Temperature Pulse Rate 92 H 84 87 Pulse Rate [ From Monitor] Respiratory 17 22 Rate Blood Pressure 126/91 126/91 126/91 O2 Sat by Pulse 95 97 Oximetry 07/13/21 06:30 Temperature Pulse Rate 84 Pulse Rate [ From Monitor] Respiratory 23 Rate Blood Pressure 119/80 O2 Sat by Pulse 95 Oximetry CBC and BMP: 07/13/21 08:30 07/13/21 08:30 ABG, PT/INR, D-dimer: ABG ABG pH 7.414 pH Units (7.350-7.450) 07/12/21 07:17 ABG pCO2 35.7 mm Hg 07/12/21 07:17 ABG pO2 74.7 mm Hg (80.0-90.0) L 07/12/21 07:17 ABG O2 Saturation 95.2 % (95.0-99.0) 07/12/21 07:17 Abnormal lab findings: Abnormal Labs 07/12/21 07/12/21 07/12/21 04:10 04:10 04:17 RDW 16.2 H Lymph # (Auto) 1.1 L Seg Neutrophils % 73.7 H ABG pO2 ABG Hemoglobin Oxyhemoglobin Potassium 3.5 L Carbon Dioxide 21 L Glucose 119 H Magnesium NT-Pro-B Natriuret Pep 3616 H Urine WBC (Auto) 07/12/21 07/12/21 07/12/21 05:35 07:05 07:17 RDW Lymph # (Auto) Seg Neutrophils % ABG pO2 74.7 L ABG Hemoglobin 11.8 L Oxyhemoglobin 93.3 L Potassium Carbon Dioxide Glucose Magnesium 2.40 H NT-Pro-B Natriuret Pep Urine WBC (Auto) 28.0 H
[2021-07-13] MEDS: FUROSEMIDE 20 MG/2 ML INJ IV SCH ×2 (07:45→10:56)
[2021-07-13 09:03] LABS: Blood Urea Nitrogen 7 mg/dL (7-17); Calcium 7.2 mg/dL (8.4-10.2); Hemolysis Index 9
[2021-07-13 09:04] LABS: BUN/Creatinine Ratio 10
[2021-07-13 09:23] LABS: Basophils # (Auto) 0.2 K/mm3 (0.0-0.1); Basophils % (Auto) 2.9 % (0.0-1.8); Eosinophils # (Auto) 0.1 K/mm3 (0.0-0.4); Eosinophils % (Auto) 1.8 % (0.0-4.3); Hematocrit 38.3 % (30.3-42.9); Hemoglobin 11.9 gm/dl (10.1-14.3); Lymphocytes % (Auto) 18.4 % (13.4-35.0); Mean Corpuscular HGB Conc 31 % (30-34); Mean Corpuscular Volume 90 fl (79-97); Monocytes # (Auto) 0.2 K/mm3 (0.0-0.8); Monocytes % (Auto) 4.2 % (0.0-7.3); Platelet Count 295 K/mm3 (140-440); Red Blood Count 4.26 M/mm3 (3.65-5.03); Red Cell Distribution Width 16.5 % (13.2-15.2)
[2021-07-14] MEDS: hydrALAZINE 20 MG/1 ML INJ IV SCH ×4 (00:17→18:22)
[2021-07-14 02:47] LABS: BUN/Creatinine Ratio 17; Blood Urea Nitrogen 12 mg/dL (7-17); Calcium 7.7 mg/dL (8.4-10.2); Hemolysis Index 8
[2021-07-14] MEDS: ACETAMINOPHEN 325 MG TAB PO PRN (06:35)
--- NOTE | 2021-07-14 06:49 | Progress Note ---
Assessment and Plan Acute respiratory failure with hypoxia P/F 71 on admission Preeclampsia in period cardiomyopathy New onset of congestive heart failure Hypertensive emergency Pulmonary edema Hypokalemia The patient has improved. Will give one more dose of Furosemide this morning with one dose of potassium replacement Ambulate her without supplemental oxygen. Stop antibiotics She is stable for discharge , from a pulmonary standpoint, with early out patient pulmonary follow up. She can been seen in my office Subjective Date of service: 07/14/21 Interval history: Follow up for acute hypoxemic resp failure; pre-eclampsia; morbid obesity Seen and examined. No adverse overnight events. Declined BIPAP last night, breathing well. Discussed with respiratory care and nursing staff. Blood pressure is withing normal, no fevers, no chills, no nausea or vomiting. Transthoracic Echocardiogram shows LVEF 50% with normal RV Objective - Exam Narrative Exam: Limitations: No Limitations General appearance: alert, in no distress - Head Head exam: Present: atraumatic, normocephalic - Eye Eye exam: Present: normal appearance - ENT ENT exam: Present: mucous membranes moist - Neck Neck exam: Present: normal inspection, full ROM - Respiratory Respiratory exam: Present: normal lung sounds bilaterally. Absent: respiratory distress, wheezes, rales, rhonchi - Cardiovascular Cardiovascular Exam: Present: regular rate, normal rhythm, normal heart sounds. Absent: systolic murmur, diastolic murmur, rubs, gallop - GI/Abdominal GI/Abdominal exam: Present: soft, normal bowel sounds. Absent: distended, tenderness, guarding, rebound - Extremities Exam Extremities exam: Present: normal inspection. Absent: full ROM, tenderness, normal capillary refill, pedal edema, joint swelling, calf tenderness - Neurological Exam Neurological exam: Present: alert, oriented X3 - Psychiatric Psychiatric exam: Present: normal affect, normal mood - Skin Skin exam: Present: warm, dry, intact, normal color. Absent: rash Vital Signs - 12hr 07/13/21 07/13/21 07/13/21 18:51 19:00 19:11 Temperature Pulse Rate 86 80 87 Pulse Rate [ From Monitor] Respiratory 17 18 25 H Rate Blood Pressure 122/83 138/97 138/97 O2 Sat by Pulse 99 98 98 Oximetry 07/13/21 07/13/21 07/13/21 19:21 19:30 19:41 Temperature Pulse Rate 87 76 77 Pulse Rate [ From Monitor] Respiratory 10 L 20 21 Rate Blood Pressure 138/97 147/100 147/100 O2 Sat by Pulse 99 Oximetry 07/13/21 07/13/21 07/13/21 19:51 20:00 20:11 Temperature 98.7 F Pulse Rate 75 74 77 Pulse Rate [ 79 From Monitor] Respiratory 18 20 14 Rate Blood Pressure 147/100 125/93 125/93 O2 Sat by Pulse 100 Oximetry 07/13/21 07/13/21 07/13/21 20:21 20:30 20:41 Temperature Pulse Rate 81 78 84 Pulse Rate [ From Monitor] Respiratory 19 23 25 H Rate Blood Pressure 125/93 132/103 132/103 O2 Sat by Pulse 100 Oximetry 07/13/21 07/13/21 07/13/21 20:51 21:00 21:11 Temperature Pulse Rate 74 76 78 Pulse Rate [ From Monitor] Respiratory 22 16 20 Rate Blood Pressure 132/103 145/112 145/112 O2 Sat by Pulse Oximetry 07/13/21 07/13/21 07/13/21 21:21 21:30 21:38 Temperature Pulse Rate 83 76 74 Pulse Rate [ From Monitor] Respiratory 19 21 Rate Blood Pressure 145/112 144/90 144/90 O2 Sat by Pulse Oximetry 07/13/21 07/13/21 07/13/21 21:41 21:51 22:00 Temperature Pulse Rate 80 80 78 Pulse Rate [ From Monitor] Respiratory 17 17 16 Rate Blood Pressure 144/90 137/98 135/95 O2 Sat by Pulse 98 98 Oximetry 07/13/21 07/13/21 07/13/21 22:11 22:21 22:31 Temperature Pulse Rate 79 75 76 Pulse Rate [ From Monitor] Respiratory 21 18 17 Rate Blood Pressure 135/95 135/95 135/95 O2 Sat by Pulse 99 99 100 Oximetry 07/13/21 07/13/21 07/13/21 22:41 22:51 23:00 Temperature Pulse Rate 79 76 77 Pulse Rate [ From Monitor] Respiratory 20 20 20 Rate Blood Pressure 135/95 135/95 130/104 O2 Sat by Pulse 100 99 98 Oximetry 07/13/21 07/13/21 07/13/21 23:11 23:21 23:31 Temperature Pulse Rate 75 75 75 Pulse Rate [ From Monitor] Respiratory 18 20 25 H Rate Blood Pressure 130/104 130/104 130/104 O2 Sat by Pulse 100 99 99 Oximetry 07/13/21 07/13/21 07/13/21 23:41 23:49 23:51 Temperature Pulse Rate 78 78 78 Pulse Rate [ From Monitor] Respiratory 19 21 20 Rate Blood Pressure 130/104 130/104 130/104 O2 Sat by Pulse 98 98 97 Oximetry 07/14/21 07/14/21 07/14/21 00:00 00:01 00:11 Temperature 97.9 F Pulse Rate 84 78 Pulse Rate [ From Monitor] Respiratory 20 19 Rate Blood Pressure 130/88 130/88 O2 Sat by Pulse 95 97 Oximetry 07/14/21 07/14/21 07/14/21 00:21 00:31 00:41 Temperature Pulse Rate 76 74 83 Pulse Rate [ From Monitor] Respiratory 19 18 17 Rate Blood Pressure 130/88 130/88 130/88 O2 Sat by Pulse 97 97 96 Oximetry 07/14/21 07/14/21 07/14/21 00:51 01:00 01:11 Temperature Pulse Rate 78 73 71 Pulse Rate [ From Monitor] Respiratory 15 16 22 Rate Blood Pressure 130/88 124/91 124/91 O2 Sat by Pulse 97 96 95 Oximetry 07/14/21 07/14/21 07/14/21 01:21 01:31 01:41 Temperature Pulse Rate 73 77 72 Pulse Rate [ From Monitor] Respiratory 16 14 14 Rate Blood Pressure 124/91 124/91 124/91 O2 Sat by Pulse 97 95 98 Oximetry 07/14/21 07/14/21 07/14/21 01:51 02:00 02:11 Temperature Pulse Rate 73 69 73 Pulse Rate [ From Monitor] Respiratory 19 19 19 Rate Blood Pressure 124/91 119/86 119/86 O2 Sat by Pulse 97 97 96 Oximetry 07/14/21 07/14/21 07/14/21 02:21 02:31 02:41 Temperature Pulse Rate 76 73 66 Pulse Rate [ From Monitor] Respiratory 14 18 19 Rate Blood Pressure 119/86 119/86 119/86 O2 Sat by Pulse 98 99 100 Oximetry 07/14/21 07/14/21 07/14/21 02:51 03:00 03:11 Temperature Pulse Rate 70 75 72 Pulse Rate [ From Monitor] Respiratory 18 18 19 Rate Blood Pressure 119/86 119/89 119/89 O2 Sat by Pulse 99 100 100 Oximetry 0307/14/21 07/14/21 03:21 03:31 03:41 Temperature Pulse Rate 77 75 76 Pulse Rate [ From Monitor] Respiratory 20 21 21 Rate Blood Pressure 119/89 119/89 119/89 O2 Sat by Pulse 100 99 99 Oximetry 07/14/21 07/14/21 07/14/21 03:51 04:00 04:11 Temperature 97.8 F Pulse Rate 76 72 69 Pulse Rate [ 70 From Monitor] Respiratory 20 15 18 Rate Blood Pressure 119/89 120/84 120/84 O2 Sat by Pulse 99 97 95 Oximetry 07/14/21 07/14/21 07/14/21 04:21 04:31 04:41 Temperature Pulse Rate 67 71 70 Pulse Rate [ From Monitor] Respiratory 20 16 23 Rate Blood Pressure 120/84 120/84 120/84 O2 Sat by Pulse 96 99 98 Oximetry 07/14/21 07/14/21 07/14/21 04:51 05:00 05:11 Temperature Pulse Rate 69 69 71 Pulse Rate [ From Monitor] Respiratory 16 16 17 Rate Blood Pressure 120/84 126/79 126/79 O2 Sat by Pulse 96 96 97 Oximetry 07/14/21 07/14/21 07/14/21 05:21 05:31 05:38 Temperature Pulse Rate 70 73 72 Pulse Rate [ From Monitor] Respiratory 17 18 Rate Blood Pressure 126/79 126/79 126/79 O2 Sat by Pulse 99 100 Oximetry 07/14/21 07/14/21 07/14/21 05:41 05:51 06:00 Temperature Pulse Rate 70 71 67 Pulse Rate [ From Monitor] Respiratory 17 20 15 Rate Blood Pressure 126/79 126/79 117/80 O2 Sat by Pulse 99 100 100 Oximetry 07/14/21 07/14/21 06:11 06:21 Temperature Pulse Rate 76 78 Pulse Rate [ From Monitor] Respiratory 18 20 Rate Blood Pressure 117/80 117/80 O2 Sat by Pulse 96 98 Oximetry CBC and BMP: 07/13/21 08:30 07/14/21 00:54 ABG, PT/INR, D-dimer: ABG ABG pH 7.414 pH Units (7.350-7.450) 07/12/21 07:17 ABG pCO2 35.7 mm Hg 07/12/21 07:17 ABG pO2 74.7 mm Hg (80.0-90.0) L 07/12/21 07:17 ABG O2 Saturation 95.2 % (95.0-99.0) 07/12/21 07:17 Abnormal lab findings: Abnormal Labs 07/12/21 07/12/21 07/12/21 04:10 04:10 04:17 RDW 16.2 H Baso % (Auto) Lymph # (Auto) 1.1 L Baso # (Auto) Seg Neutrophils % 73.7 H ABG pO2 ABG Hemoglobin Oxyhemoglobin Potassium 3.5 L Carbon Dioxide 21 L Glucose 119 H Calcium Magnesium NT-Pro-B Natriuret Pep 3616 H Urine WBC (Auto) 07/12/21 07/12/21 07/12/21 05:35 07:05 07:17 RDW Baso % (Auto) Lymph # (Auto) Baso # (Auto) Seg Neutrophils % ABG pO2 74.7 L ABG Hemoglobin 11.8 L Oxyhemoglobin 93.3 L Potassium Carbon Dioxide Glucose Calcium Magnesium 2.40 H NT-Pro-B Natriuret Pep Urine WBC (Auto) 28.0 H 07/13/21 07/13/21 07/13/21 08:30 08:30 08:30 RDW 16.5 H Baso % (Auto) 2.9 H Lymph # (Auto) 1.0 L Baso # (Auto) 0.2 H Seg Neutrophils % 72.7 H ABG pO2 ABG Hemoglobin Oxyhemoglobin Potassium 3.5 L Carbon Dioxide Glucose 121 H Calcium 7.2 L D Magnesium 5.50 H NT-Pro-B Natriuret Pep Urine WBC (Auto) 07/14/21 00:54 RDW Baso % (Auto) Lymph # (Auto) Baso # (Auto) Seg Neutrophils % ABG pO2 ABG Hemoglobin Oxyhemoglobin Potassium Carbon Dioxide Glucose Calcium 7.7 L Magnesium NT-Pro-B Natriuret Pep Urine WBC (Auto) Allied health notes reviewed: RT
[2021-07-14] MEDS ORDERED: POTASSIUM CHLORIDE ER 20 MEQ TAB PO ONE (07:25)
[2021-07-14] MEDS: FUROSEMIDE 20 MG/2 ML INJ IV SCH (09:23)
--- NOTE | 2021-07-14 10:08 | Progress Note ---
Subjective - Subjective Date of service: 07/13/21 Patient reports: appetite normal Objective - Vital Signs Latest vital signs: Vital Signs Temp Pulse Pulse Resp BP Pulse Ox 07/14/21 10:00 75 21 125/77 95 07/14/21 09:51 85 15 130/68 94 07/14/21 09:41 75 17 130/68 96 07/14/21 09:31 77 21 130/68 95 07/14/21 09:27 95 07/14/21 09:22 77 130/68 07/14/21 09:21 78 14 130/68 96 07/14/21 09:10 139/90 96 07/14/21 08:31 73 18 139/90 99 07/14/21 08:21 74 15 139/90 97 07/14/21 08:11 72 15 139/90 96 07/14/21 08:01 76 17 139/90 97 07/14/21 08:00 97.9 F 70 20 100 07/14/21 07:51 69 18 122/79 98 07/14/21 07:50 97.9 F 07/14/21 07:41 70 18 122/79 97 07/14/21 07:31 70 15 122/79 98 07/14/21 07:21 72 20 122/79 96 07/14/21 07:11 71 14 122/79 99 07/14/21 07:00 68 17 122/79 100 07/14/21 06:51 71 18 117/80 100 07/14/21 06:41 67 17 117/80 100 07/14/21 06:31 64 17 117/80 97 07/14/21 06:21 78 20 117/80 98 07/14/21 06:11 76 18 117/80 96 07/14/21 06:00 67 15 117/80 100 07/14/21 05:51 71 20 126/79 100 07/14/21 05:41 70 17 126/79 99 07/14/21 05:38 72 126/79 07/14/21 05:31 73 18 126/79 100 07/14/21 05:21 70 17 126/79 99 07/14/21 05:11 71 17 126/79 97 07/14/21 05:00 69 16 126/79 96 07/14/21 04:51 69 16 120/84 96 07/14/21 04:41 70 23 120/84 98 07/14/21 04:31 71 16 120/84 99 07/14/21 04:21 67 20 120/84 96 07/14/21 04:11 69 18 120/84 95 07/14/21 04:00 97.8 F 72 70 15 120/84 97 07/14/21 03:51 76 20 119/89 99 07/14/21 03:41 76 21 119/89 99 07/14/21 03:31 75 21 119/89 99 07/14/21 03:21 77 20 119/89 100 07/14/21 03:11 72 19 119/89 100 07/14/21 03:00 75 18 119/89 100 07/14/21 02:51 70 18 119/86 99 07/14/21 02:41 66 19 119/86 100 07/14/21 02:31 73 18 119/86 99 07/14/21 02:21 76 14 119/86 98 07/14/21 02:11 73 19 119/86 96 07/14/21 02:00 69 19 119/86 100 07/14/21 01:51 73 19 124/91 97 07/14/21 01:41 72 14 124/91 98 07/14/21 01:31 77 14 124/91 95 07/14/21 01:21 73 16 124/91 97 07/14/21 01:11 71 22 124/91 95 07/14/21 01:00 73 16 124/91 96 07/14/21 00:51 78 15 130/88 97 07/14/21 00:41 83 17 130/88 96 07/14/21 00:31 74 18 130/88 97 06 00:21 76 19 130/88 97 07/14/21 00:11 78 19 130/88 97 07/14/21 00:01 84 20 130/88 95 07/14/21 00:00 97.9 F 07/13/21 23:51 78 20 130/104 97 07/13/21 23:49 78 21 130/104 98 07/13/21 23:41 78 19 130/104 98 07/13/21 23:31 75 25 H 130/104 99 07/13/21 23:21 75 20 130/104 99 07/13/21 23:11 75 18 130/104 100 03/05/22 23:00 77 20 130/104 98 07/13/21 22:51 76 20 135/95 99 07/13/21 22:41 79 20 135/95 100 07/13/21 22:31 76 17 135/95 100 07/13/21 22:21 75 18 135/95 99 07/13/21 22:11 79 21 135/95 99 07/13/21 22:00 78 16 135/95 98 07/13/21 21:51 80 17 137/98 98 07/13/21 21:41 80 17 144/90 07/13/21 21:38 74 144/90 07/13/21 21:30 76 21 144/90 07/13/21 21:21 83 19 145/112 07/13/21 21:11 78 20 145/112 07/13/21 21:00 76 16 145/112 07/13/21 20:51 74 22 132/103 07/13/21 20:41 84 25 H 132/103 100 07/13/21 20:30 78 23 132/103 07/13/21 20:21 81 19 125/93 07/13/21 20:11 77 14 125/93 07/13/21 20:00 98.7 F 74 79 20 125/93 100 07/13/21 19:51 75 18 147/100 07/13/21 19:41 77 21 147/100 07/13/21 19:30 76 20 147/100 07/13/21 19:21 87 10 L 138/97 99 07/13/21 19:11 87 25 H 138/97 98 07/13/21 19:00 80 18 138/97 98 07/13/21 18:51 86 17 122/83 99 07/13/21 18:41 88 21 122/83 98 05 18:31 89 21 122/83 98 05 18:21 91 H 23 128/81 98 07/13/21 18:11 88 22 128/81 99 07/13/21 18:00 83 19 128/81 99 07/13/21 17:51 71 23 143/94 100 07/13/21 17:41 80 27 H 143/94 99 07/13/21 17:31 82 16 143/94 80 L 05 17:21 84 17 130/68 73 L 03/05/22 17:11 81 18 130/68 100 07/13/21 17:01 84 23 130/68 100 07/13/21 16:51 76 20 135/90 100 07/13/21 16:41 80 21 135/90 99 07/13/21 16:30 88 18 135/90 99 07/13/21 16:21 88 17 118/70 99 07/13/21 16:11 87 18 118/70 100 07/13/21 16:01 81 23 118/70 80 L 07/13/21 16:00 98.0 F 85 18 100 07/13/21 15:51 82 22 118/70 100 07/13/21 15:41 89 20 118/70 99 07/13/21 15:31 82 16 127/83 100 07/13/21 15:21 85 14 127/83 99 07/13/21 15:11 82 23 127/83 100 07/13/21 15:00 85 19 127/83 99 07/13/21 14:51 84 18 117/88 99 07/13/21 14:41 89 24 117/88 97 07/13/21 14:30 80 21 117/88 100 07/13/21 14:21 81 21 132/91 99 07/13/21 14:11 92 H 19 132/91 99 07/13/21 14:00 81 13 132/91 100 07/13/21 13:51 86 21 126/93 100 07/13/21 13:41 92 H 20 126/93 99 07/13/21 13:30 88 18 126/93 99 07/13/21 13:21 85 18 135/91 99 07/13/21 13:11 84 16 135/91 97 07/13/21 13:00 85 25 H 135/91 96 07/13/21 12:51 93 H 19 126/94 97 05 12:41 82 20 128/75 05 12:31 84 23 128/75 05 12:21 85 23 128/75 07/13/21 12:11 77 22 128/75 07/13/21 12:00 98.2 F 80 81 20 128/75 98 07/13/21 11:51 77 18 129/92 97 05 11:41 73 20 129/92 97 03/05/22 11:30 74 19 129/92 99 07/13/21 11:21 78 21 124/86 97 07/13/21 11:11 78 25 H 124/86 96 07/13/21 11:00 71 19 124/86 98 07/13/21 10:55 70 128/90 07/13/21 10:51 76 23 128/90 98 07/13/21 10:41 84 25 H 128/90 98 07/13/21 10:30 83 20 128/90 98 07/13/21 10:21 85 22 137/93 99 07/13/21 10:11 100 H 22 111/79 Intake and Output 07/13/21 07/14/21 07/14/21 22:59 06:59 14:59 Intake Total 360 240 240 Output Total 500 Balance -140 240 240 Intake: Oral 120 240 Intake, Free Water 240 240 Output: Urine 500 Void 500 Other: Total, Intake Amount 0 120 Total, Output Amount 500 Voiding Method External Female Catheter External Female Catheter Bedside Commode # Voids Void 1 1 1 - Labs Labs: Abnormal lab results 07/13/21 07/14/21 Range/Units 08:30 00:54 Calcium 7.7 L (8.4-10.2) mg/dL Magnesium 5.50 H (1.7-2.3) mg/dL
[2021-07-14 11:12] LABS: ABG HCO3 29.2 mmol/L (20.0-26.0); ABG Methemoglobin 0.5 % (0.0-1.5); ABG Oxygen Saturation 96.1 % (95.0-99.0); ABG PCO2 41.6 mm Hg; ABG PH 7.465 pH Units (7.350-7.450); ABG PO2 75.2 mm Hg (80.0-90.0)
--- NOTE | 2021-07-14 13:41 | Progress Note ---
Assessment and Plan Hospital day 3 for this patient with peripartum cardiomyopathy and shortness of breath along with pulmonary edema. Patient was seen by pulmonology this morning and was told that she would be able to go home with close follow-up however patient had to receive Lasix prior to this potential discharge. In addition, when the patient was seen today, she reported shortness of breath with moving about her ICU room. She stated that once the oxygen on she felt better, and would like to be able to go home with oxygen as she feels that her breathing is much easier when she has it on. Patient also stated that when she lie flat she had chest heaviness and felt like sleeping sitting up was the better position. I advised patient that with all of this, the thing her home on today would not be in her best interest. Patient will need follow-up quickly as an outpatient including pulmonology appointment and possible O2 therapy at home. I advised the patient that she would likely go home on tomorrow or on Thursday once she could have the appropriate services set up for her at home care. I also advised the patient we will try to transfer her to mother-baby pending the decision of the mother-baby charge nurse in regard to her need for oxygen. Subjective - Subjective Date of service: 07/14/21 Principal diagnosis: cardiomyopathy Patient reports: appetite normal, voiding normally, pain well controlled, other (Patient becomes winded when moving about without O2 and reports chest heaviness when lying flat) Objective - Vital Signs Latest vital signs: Vital Signs Temp Pulse Pulse Resp BP Pulse Ox 07/14/21 13:20 81 120/74 98 07/14/21 13:10 79 120/74 98 07/14/21 13:00 111 H 120/74 97 07/14/21 12:50 78 139/90 97 07/14/21 12:40 72 24 128/94 95 07/14/21 12:30 72 18 128/94 94 07/14/21 12:20 71 19 128/94 96 07/14/21 12:10 73 26 H 128/94 95 07/14/21 12:00 69 14 128/94 97 07/14/21 11:57 98.4 F 07/14/21 11:50 73 16 120/82 95 07/14/21 11:40 75 19 120/82 95 07/14/21 11:31 71 17 120/82 94 07/14/21 11:21 77 17 120/82 94 07/14/21 11:11 79 26 H 120/82 95 07/14/21 11:00 74 16 120/82 97 07/14/21 10:51 77 18 125/77 96 07/14/21 10:41 77 14 125/77 96 07/14/21 10:31 76 16 125/77 94 07/14/21 10:21 77 20 125/77 95 06 10:11 77 17 125/77 94 07/14/21 10:00 76 21 125/77 95 07/14/21 09:51 85 15 130/68 94 07/14/21 09:41 75 17 130/68 96 07/14/21 09:31 77 21 130/68 95 06 09:27 95 07/14/21 09:22 77 130/68 07/14/21 09:21 78 14 130/68 96 07/14/21 09:10 139/90 96 07/14/21 08:31 73 18 139/90 99 07/14/21 08:21 74 15 139/90 97 07/14/21 08:11 72 15 139/90 96 07/14/21 08:01 76 17 139/90 97 07/14/21 08:00 97.9 F 70 20 100 07/14/21 07:51 69 18 122/79 98 06 07:50 97.9 F 07/14/21 07:41 70 18 122/79 97 06 07:31 70 15 122/79 98 06 07:21 72 20 122/79 96 06 07:11 71 14 122/79 99 07/14/21 07:00 68 17 122/79 100 /06/22 06:51 71 18 117/80 100 03/06/22 06:41 67 17 117/80 100 03/06/22 06:31 64 17 117/80 97 06 06:21 78 20 117/80 98 06 06:11 76 18 117/80 96 06 06:00 67 15 117/80 100 03/06/ 05:51 71 20 126/79 100 06 05:41 70 17 126/79 99 03/06/22 05:38 72 126/79 03/06/22 05:31 73 18 126/79 100 06 05:21 70 17 126/79 99 06 05:11 71 17 126/79 97 07/14/21 05:00 69 16 126/79 96 07/14/21 04:51 69 16 120/84 96 07/14/21 04:41 70 23 120/84 98 0306 04:31 71 16 120/84 99 06 04:21 67 20 120/84 96 /06/22 04:11 69 18 120/84 95 07/14/21 04:00 97.8 F 72 70 15 120/84 97 06 03:51 76 20 119/89 99 07/14/21 03:41 76 21 119/89 99 07/14/21 03:31 75 21 119/89 99 07/14/21 03:21 77 20 119/89 100 07/14/21 03:11 72 19 119/89 100 07/14/21 03:00 75 18 119/89 100 07/14/21 02:51 70 18 119/86 99 07/14/21 02:41 66 19 119/86 100 07/14/21 02:31 73 18 119/86 99 07/14/21 02:21 76 14 119/86 98 07/14/21 02:11 73 19 119/86 96 07/14/21 02:00 69 19 119/86 97 07/14/21 01:51 73 19 124/91 97 06 01:41 72 14 124/91 98 06 01:31 77 14 124/91 95 03/06/22 01:21 73 16 124/91 97 06 01:11 71 22 124/91 95 06/ 01:00 73 16 124/91 96 0306/ 00:51 78 15 130/88 97 06/ 00:41 83 17 130/88 96 /06/22 00:31 74 18 130/88 97 /06/ 00:21 76 19 130/88 97 /06/22 00:11 78 19 130/88 97 06 00:01 84 20 130/88 95 06 00:00 97.9 F 03/05/22 23:51 78 20 130/104 97 07/13/21 23:49 78 21 130/104 98 07/13/21 23:41 78 19 130/104 98 07/13/21 23:31 75 25 H 130/104 99 05 23:21 75 20 130/104 99 05 23:11 75 18 130/104 100 05 23:00 77 20 130/104 98 05 22:51 76 20 135/95 99 0522 22:41 79 20 135/95 100 05 22:31 76 17 135/95 100 05 22:21 75 18 135/95 99 05 22:11 79 21 135/95 99 05 22:00 78 16 135/95 98 07/13/21 21:51 80 17 137/98 98 07/13/21 21:41 80 17 144/90 07/13/21 21:38 74 144/90 07/13/21 21:30 76 21 144/90 05 21:21 83 19 145/112 07/13/21 21:11 78 20 145/112 07/13/21 21:00 76 16 145/112 07/13/21 20:51 74 22 132/103 07/13/21 20:41 84 25 H 132/103 100 07/13/21 20:30 78 23 132/103 07/13/21 20:21 81 19 125/93 05 20:11 77 14 125/93 07/13/21 20:00 98.7 F 74 79 20 125/93 100 05 19:51 75 18 147/100 05 19:41 77 21 147/100 05 19:30 76 20 147/100 05 19:21 87 10 L 138/97 99 07/13/21 19:11 87 25 H 138/97 98 05 19:00 80 18 138/97 98 07/13/21 18:51 86 17 122/83 99 /05/22 18:41 88 21 122/83 98 /0522 18:31 89 21 122/83 98 0522 18:21 91 H 23 128/81 98 03/05/22 18:11 88 22 128/81 99 07/13/21 18:00 83 19 128/81 99 07/13/21 17:51 71 23 143/94 100 07/13/21 17:41 80 27 H 143/94 99 07/13/21 17:31 82 16 143/94 80 L 07/13/21 17:21 84 17 130/68 73 L 07/13/21 17:11 81 18 130/68 100 07/13/21 17:01 84 23 130/68 100 07/13/21 16:51 76 20 135/90 100 07/13/21 16:41 80 21 135/90 99 07/13/21 16:30 88 18 135/90 99 07/13/21 16:21 88 17 118/70 99 07/13/21 16:11 87 18 118/70 100 07/13/21 16:01 81 23 118/70 80 L 07/13/21 16:00 98.0 F 85 18 100 07/13/21 15:51 82 22 118/70 100 07/13/21 15:41 89 20 118/70 99 07/13/21 15:31 82 16 127/83 100 07/13/21 15:21 85 14 127/83 99 07/13/21 15:11 82 23 127/83 100 07/13/21 15:00 85 19 127/83 99 07/13/21 14:51 84 18 117/88 99 07/13/21 14:41 89 24 117/88 97 07/13/21 14:30 80 21 117/88 100 07/13/21 14:21 81 21 132/91 99 07/13/21 14:11 92 H 19 132/91 99 07/13/21 14:00 81 13 132/91 100 07/13/21 13:51 86 21 126/93 100 07/13/21 13:41 92 H 20 126/93 99 Intake and Output 07/13/21 07/14/21 07/14/21 22:59 06:59 14:59 Intake Total 360 240 240 Output Total 500 Balance -140 240 240 Intake: Oral 120 240 Intake, Free Water 240 240 Output: Urine 500 Void 500 Other: Total, Intake Amount 0 120 Total, Output Amount 500 Voiding Method External Female Catheter External Female Catheter Bedside Commode # Voids Void 1 1 1 - Exam Breasts: Present: deferred Cardiovascular: Present: Regular rate, Normal S1, Normal S2 Lungs: Present: Other (Decreased breath sounds at bases) Abdomen: Present: normal appearance, soft, normal bowel sounds Extremities: Present: edema - Labs Labs: Abnormal lab results 07/14/21 07/14/21 Range/Units 00:54 11:05 ABG pH 7.465 H (7.350-7.450) pH Units ABG pO2 75.2 L (80.0-90.0) mm Hg ABG HCO3 29.2 H (20.0-26.0) mmol/L ABG Base Excess 5.0 H (-2.0-3.0) mmol/L Oxyhemoglobin 94.2 L (95.0-99.0) % Calcium 7.7 L (8.4-10.2) mg/dL
--- NOTE | 2021-07-15 08:48 | Progress Note ---
Assessment and Plan A: HD# 4 Acute respiratory failure with hypoxia on admission now maintaining oxygen saturation >95% on room air cardiomyopathy New onset of congestive heart failure Preeclampsia in period, initially with hypertensive urgency s/p magnesium sulfate s/p vaginal after section on 07/04/21 Obesity P: Transfer to telemetry unit Replace Cardiology consult Clarify outpatient medication regimen for antihypertensives and diuretics Continue to closely monitor clinical status Subjective - Subjective Date of service: 07/15/21 Principal diagnosis: cardiomyopathy, CHF, Preeclampsia Interval history: Pt feels well this morning. She reports that she has been straightening up her room overnight. She is voiding without difficulty. + flatus. no bowel movement. Decreasing lochia. She is able to hold a conversation with me this morning without coughing or gasping. She has maintained her oxygen saturation at 96-97% on room air throughout this conversation. Patient reports: appetite normal, voiding normally, flatus, ambulating normally, no dizzy ambulation [place]: doing well Objective - Vital Signs Latest vital signs: Vital Signs Temp Pulse Pulse Resp BP Pulse Ox 07/15/21 08:30 77 24 143/99 96 07/15/21 08:00 73 16 137/88 97 07/15/21 07:30 73 13 131/104 97 07/15/21 07:00 78 19 133/88 96 07/15/21 06:30 77 16 133/91 94 07/15/21 06:00 74 18 133/91 92 07/15/21 05:30 71 22 106/66 91 07/15/21 05:12 72 07/15/21 05:00 76 15 106/66 96 07/15/21 04:30 74 18 120/81 96 07/15/21 04:10 72 17 117/69 96 07/15/21 04:00 77 74 27 H 131/88 96 07/15/21 03:50 72 19 131/88 99 07/15/21 03:40 81 17 131/88 97 07/15/21 03:30 74 18 131/88 96 07/15/21 03:20 72 20 94/55 98 07/15/21 03:10 74 19 94/55 97 07/15/21 03:00 79 20 94/55 99 07/15/21 02:50 72 18 125/86 98 07/15/21 02:40 73 19 125/86 100 03/07/22 02:30 69 20 125/86 100 07/15/21 02:20 69 17 118/66 99 07/15/21 02:10 77 16 118/66 94 07/15/21 02:00 77 19 118/66 95 07/15/21 01:50 81 19 115/65 92 07/15/21 01:40 79 19 115/65 93 07/15/21 01:30 76 18 115/65 93 07/15/21 01:20 77 14 114/58 91 07/15/21 01:12 80 07/15/21 01:10 83 19 114/58 96 07/15/21 01:00 84 20 128/69 94 07/15/21 00:50 76 19 128/69 94 07/15/21 00:40 81 18 128/69 95 07/15/21 00:30 82 18 128/69 94 07/15/21 00:20 83 14 113/79 96 07/15/21 00:10 77 11 L 113/79 96 07/15/21 00:02 76 17 113/79 96 07/15/21 00:00 97.8 F 75 76 18 113/79 97 07/14/21 23:50 76 16 118/79 96 07/14/21 23:40 74 22 118/79 94 07/14/21 23:30 72 18 118/79 95 07/14/21 23:24 131/96 96 07/14/21 22:50 83 30 H 131/96 95 07/14/21 22:40 85 23 131/96 96 07/14/21 22:30 83 22 131/96 93 07/14/21 22:20 80 21 140/67 94 07/14/21 22:10 80 22 140/67 95 07/14/21 22:00 82 19 140/67 95 07/14/21 21:50 101 H 25 H 137/79 95 07/14/21 21:40 75 15 137/79 97 07/14/21 21:31 88 137/79 07/14/21 21:30 87 32 H 137/79 95 07/14/21 21:20 94 H 12 139/82 95 07/14/21 21:10 81 18 139/82 97 07/14/21 21:00 81 18 139/82 94 07/14/21 20:50 84 18 127/90 93 07/14/21 20:40 82 18 127/90 93 07/14/21 20:30 80 19 127/90 94 07/14/21 20:20 79 20 136/92 96 07/14/21 20:10 82 23 136/92 95 07/14/21 20:01 136/92 07/14/21 20:00 98.2 F 78 19 98 07/14/21 19:20 80 16 106/73 98 07/14/21 19:10 85 23 106/73 96 07/14/21 19:00 85 19 106/73 95 07/14/21 18:50 85 18 110/73 95 07/14/21 18:40 83 22 110/73 95 07/14/21 18:30 83 21 110/73 96 07/14/21 18:20 80 22 110/73 95 07/14/21 18:10 89 18 110/73 96 07/14/21 18:00 78 24 110/73 94 07/14/21 17:50 82 21 137/101 97 07/14/21 17:40 82 23 137/101 96 07/14/21 17:30 80 17 137/101 97 07/14/21 17:20 79 12 137/101 96 07/14/21 17:10 77 22 137/101 96 07/14/21 17:00 76 17 116/69 96 07/14/21 16:50 84 26 H 116/69 95 07/14/21 16:40 78 27 H 116/69 95 07/14/21 16:31 98.1 F 07/14/21 16:30 74 21 116/69 97 07/14/21 16:20 79 22 116/69 97 07/14/21 16:10 77 15 116/69 96 07/14/21 16:00 76 76 22 116/69 96 07/14/21 15:50 75 20 112/66 93 07/14/21 15:40 79 18 112/66 94 07/14/21 15:30 78 21 112/66 94 07/14/21 15:20 80 19 112/66 93 07/14/21 15:10 79 20 112/66 93 07/14/21 15:00 78 17 112/66 93 07/14/21 14:50 155 H 114/71 94 07/14/21 14:40 79 114/71 91 07/14/21 14:30 77 114/71 91 07/14/21 14:20 79 114/71 92 07/14/21 14:10 86 114/71 95 07/14/21 14:00 79 114/71 98 07/14/21 13:50 78 120/74 98 07/14/21 13:40 89 120/74 96 07/14/21 13:30 79 120/74 98 07/14/21 13:20 81 120/74 98 07/14/21 13:10 79 120/74 98 07/14/21 13:00 111 H 120/74 97 07/14/21 12:50 78 139/90 97 07/14/21 12:40 72 24 128/94 95 07/14/21 12:30 72 18 128/94 94 07/14/21 12:20 71 19 128/94 96 07/14/21 12:10 73 26 H 128/94 95 07/14/21 12:00 98.4 F 69 86 16 128/94 100 07/14/21 11:57 98.4 F 07/14/21 11:50 73 16 120/82 95 07/14/21 11:40 75 19 120/82 95 07/14/21 11:31 71 17 120/82 94 07/14/21 11:21 77 17 120/82 94 07/14/21 11:11 79 26 H 120/82 95 07/14/21 11:00 74 16 120/82 97 07/14/21 10:51 77 18 125/77 96 07/14/21 10:41 77 14 125/77 96 07/14/21 10:31 76 16 125/77 94 07/14/21 10:21 77 20 125/77 95 07/14/21 10:11 77 17 125/77 94 07/14/21 10:00 76 21 125/77 95 06 09:51 85 15 130/68 94 07/14/21 09:41 75 17 130/68 96 06 09:31 77 21 130/68 95 07/14/21 09:27 95 06 09:22 77 130/68 03 09:21 78 14 130/68 96 07/14/21 09:10 139/90 96 Intake and Output 03/06/22 03/07/22 03/07/22 22:59 06:59 14:59 Intake Total 460 610 240 Output Total 250 Balance 210 610 240 Intake: Oral 240 Intake, Free Water 460 610 Output: Urine 250 Void 250 Other: Total, Intake Amount 240 Total, Output Amount 250 Voiding Method Toilet Toilet Bedside Commode # Voids Void 0 0 1 # Bowel Movements 0 0 - Exam Breasts: Present: deferred Abdomen: Present: soft Uterus: Present: fundal height below umbilicus Extremities: Absent: edema - Labs Labs: Abnormal lab results 07/14/21 Range/Units 11:05 ABG pH 7.465 H (7.350-7.450) pH Units ABG pO2 75.2 L (80.0-90.0) mm Hg ABG HCO3 29.2 H (20.0-26.0) mmol/L ABG Base Excess 5.0 H (-2.0-3.0) mmol/L Oxyhemoglobin 94.2 L (95.0-99.0) %
[2021-07-15] MEDS: FUROSEMIDE 20 MG/2 ML INJ IV SCH (09:40)
--- NOTE | 2021-07-15 10:46 | Consultation ---
History of Present Illness Consult date: 07/15/21 Consult reason: shortness of breath History of present illness: The patient is a 36-year-old woman who is 12 days , presented to the hospital with shortness of breath that began several days after her regular vaginal delivery. On contact with the medical service, her blood pressure was 170 systolic. There was no chest pain, no lower extremity edema, no orthopnea. She states that her was uneventful, denies any history of hypertension either before or during the . She has had several pregnancies in the past, no previous related hypertension or fluid overload. The patient looks and feels better, following optimal management of her hypertension and diuretic therapy. Work-up so far in the hospital, ECG was normal sinus rhythm, left ventricle hypertrophy voltage criteria, but no ST or T wave changes. Chest x-ray shows some bilateral airspace opacities, with no clear evidence for pulmonary edema or heart failure. His CT angiogram of the chest was negative for pulmonary embolism. Echocardiogram done on this presentation shows borderline decrease in left ventricular systolic function with ejection fraction 45 to 50%, at least mild concentric left ventricular per [place], mild to moderate mitral regurgitation. Past History Past Medical History: No medical history Medications and Allergies Allergies Allergy/AdvReac Type Severity Reaction Status Date / Time No Known Allergies Allergy Verified 07/12/21 14:11 Home Medications Medication Instructions Recorded Confirmed Last Taken Type Ibuprofen [Motrin 800 MG tab] 800 mg PO Q8HR 7 Days #21 tablet 07/06/21 07/12/21 Unknown Rx Active Meds: Active Medications Acetaminophen (Acetaminophen 325 Mg Tab) 650 mg PO Q6H PRN PRN Reason: Pain MILD(1-3)/Fever >100.5/HONG Last Admin: 07/14/21 06:35 Dose: 650 mg Furosemide (Furosemide 20 Mg/2 Ml Inj) 20 mg IV QDAY [facility] Last Admin: 07/15/21 09:40 Dose: 20 mg Nitroglycerin/Dextrose (Tridil Drip 50mg/250ml) 50 mg in 250 mls @ 3 mls/hr IV TITR [facility]; Protocol Last Titration: 07/12/21 22:45 Dose: 0 mcg/min, 0 mls/hr Labetalol HCl (Labetalol 200 Mg Tab) 200 mg PO BID [facility] Last Admin: 07/15/21 09:40 Dose: 200 mg Oxycodone/Acetaminophen (Oxycodone /Acetaminophen 5-325mg Tab) 1 tab PO Q6H PRN PRN Reason: Pain, Moderate (4-6) Last Admin: 07/12/21 08:19 Dose: 1 tab Sodium Chloride (Sodium Chloride 0.9% 10 Ml Flush Syringe) 10 ml IV BID [facility] Last Admin: 07/15/21 09:40 Dose: 10 ml Sodium Chloride (Sodium Chloride 0.9% 10 Ml Flush Syringe) 10 ml IV PRN PRN PRN Reason: LINE FLUSH Review of Systems Cardiovascular: shortness of breath, no chest pain, no orthopnea, no palpitations, no rapid/irregular heart beat, no edema, no syncope, no lighthead edness Physical Examination Vital Signs Temp Pulse Resp BP Pulse Ox 98.9 F 95 H 22 164/117 99 07/12/21 03:58 07/12/21 03:58 07/12/21 03:58 07/12/21 03:58 07/12/21 03:58 General appearance: no acute distress HEENT: Positive: PERRL Neck: Positive: neck supple Cardiac: Positive: Reg Rate and Rhythm Lungs: Positive: Decreased Breath Sounds Neuro: Positive: Grossly Intact Abdomen: Positive: Soft Female genitourinary: deferred Skin: Positive: Clear Extremities: Absent: edema Results 07/13/21 08:30 07/14/21 00:54 EKG interpretations - Telemetry EKG Rhythm: Sinus Rhythm Assessment and Plan - Patient Problems (1) Shortness of breath Current Visit: Yes Status: Acute Plan to address problem: Patient presents with shortness of breath and uncontrolled hyper tension, presentation consistent with eclampsia. Left ventricular systolic function is borderline decreased with ejection fraction 45 to 50%, mild to moderate mitral regurgitation. Chest x-ray is nondiagnostic for pulmonary edema, has nonspecific bilateral opacities. We will continue medical management, labetalol for hypertension, I will add hydralazine 50 mg twice daily for afterload reduction.
[2021-07-15] MEDS: hydrALAZINE 25 MG TAB PO SCH ×2 (11:37→21:30)
--- NOTE | 2021-07-15 13:00 | Progress Note ---
Assessment and Plan Acute respiratory failure with hypoxia P/F 71 on admission Preeclampsia in period cardiomyopathy New onset of congestive heart failure Hypertensive emergency Pulmonary edema Hypokalemia - prn supplemental oxygen to keep O2 sats > 90% - continue Labetalol for BP control - prn bronchodilators (OLIVER) with pulm hygiene per RT - avoid nephrotoxins, renally dose all medications - mobility protocols to prevent pressure ulcers - PT/OT as tolerated - Wound care per RN/WCT - accuchecks with glycemic control per SSI for target blood glucose < 180 mg/dL - tobacco abstinence strongly counseled at the bedside - home oxygen evaluation at discharge - GI & VTE prophylaxis - Flu & pneumovax per protocol - continue other care per attending / other consultants - prn analgesia per pain score ... re-evaluate in am & prn Subjective Date of service: 07/15/21 Principal diagnosis: AHRF; Preeclampsia; CMOP; NO-CHF; Hypertensive emergency Interval history: Patient is seen today for: AHRF; Preeclampsia in period; cardiomyopathy; New onset of congestive heart failure; Hypertensive emergency Seen and examined at bedside; 24hour events reviewed; nursing and respiratory care staff consulted; no adverse overnight events reported to me; resting peacefully in bed; now off supplemental oxygen; EF is 50%; denies N/V/F/C Objective Vital Signs - 12hr 07/15/21 07/15/21 07/15/21 01:00 01:10 01:12 Temperature Pulse Rate 84 83 80 Pulse Rate [ From Monitor] Respiratory 20 19 Rate Blood Pressure 128/69 114/58 O2 Sat by Pulse 94 96 Oximetry 07/15/21 07/15/21 07/15/21 01:20 01:30 01:40 Temperature Pulse Rate 77 76 79 Pulse Rate [ From Monitor] Respiratory 14 18 19 Rate Blood Pressure 114/58 115/65 115/65 O2 Sat by Pulse 91 93 93 Oximetry 07/15/21 07/15/21 07/15/21 01:50 02:00 02:10 Temperature Pulse Rate 81 77 77 Pulse Rate [ From Monitor] Respiratory 19 19 16 Rate Blood Pressure 115/65 118/66 118/66 O2 Sat by Pulse 92 95 94 Oximetry 07/15/21 07/15/21 07/15/21 02:20 02:30 02:40 Temperature Pulse Rate 69 69 73 Pulse Rate [ From Monitor] Respiratory 17 20 19 Rate Blood Pressure 118/66 125/86 125/86 O2 Sat by Pulse 99 100 100 Oximetry 07/15/21 07/15/21 07/15/21 02:50 03:00 03:10 Temperature Pulse Rate 72 79 74 Pulse Rate [ From Monitor] Respiratory 18 20 19 Rate Blood Pressure 125/86 94/55 94/55 O2 Sat by Pulse 98 99 97 Oximetry 07/15/21 07/15/21 07/15/21 03:20 03:30 03:40 Temperature Pulse Rate 72 74 81 Pulse Rate [ From Monitor] Respiratory 20 18 17 Rate Blood Pressure 94/55 131/88 131/88 O2 Sat by Pulse 98 96 97 Oximetry 07/15/21 07/15/21 07/15/21 03:50 04:00 04:10 Temperature Pulse Rate 72 77 72 Pulse Rate [ 74 From Monitor] Respiratory 19 27 H 17 Rate Blood Pressure 131/88 131/88 117/69 O2 Sat by Pulse 99 96 96 Oximetry 07/15/21 07/15/21 07/15/21 04:30 05:00 05:12 Temperature Pulse Rate 74 76 72 Pulse Rate [ From Monitor] Respiratory 18 15 Rate Blood Pressure 120/81 106/66 O2 Sat by Pulse 96 96 Oximetry 07/15/21 07/15/21 07/15/21 05:30 06:00 06:30 Temperature Pulse Rate 71 74 77 Pulse Rate [ From Monitor] Respiratory 22 18 16 Rate Blood Pressure 106/66 133/91 133/91 O2 Sat by Pulse 91 92 94 Oximetry 07/15/21 07/15/21 07/15/21 07:00 07:30 08:00 Temperature 97.9 F Pulse Rate 78 73 73 Pulse Rate [ 73 From Monitor] Respiratory 19 13 22 Rate Blood Pressure 133/88 131/104 137/88 O2 Sat by Pulse 96 97 96 Oximetry 07/15/21 07/15/21 07/15/21 08:30 09:00 09:30 Temperature Pulse Rate 77 76 76 Pulse Rate [ From Monitor] Respiratory 24 16 18 Rate Blood Pressure 143/99 119/77 128/78 O2 Sat by Pulse 96 97 94 Oximetry 07/15/21 07/15/21 07/15/21 09:40 10:00 10:30 Temperature Pulse Rate 80 73 Pulse Rate [ From Monitor] Respiratory 16 Rate Blood Pressure 128/78 139/99 139/99 O2 Sat by Pulse 96 100 Oximetry 07/15/21 07/15/21 07/15/21 11:00 11:30 12:00 Temperature Pulse Rate 73 71 79 Pulse Rate [ 76 From Monitor] Respiratory 15 18 18 Rate Blood Pressure 106/61 112/68 112/68 O2 Sat by Pulse 96 97 96 Oximetry 07/15/21 12:30 Temperature Pulse Rate 74 Pulse Rate [ From Monitor] Respiratory Rate Blood Pressure 109/65 O2 Sat by Pulse 96 Oximetry Constitutional: no acute distress Eyes: non-icteric ENT: oropharynx moist Neck: supple, no lymphadenopathy, no JVD Effort: mildly labored Ascultation: Bilateral: clear Percussion: Bilateral: not dull Cardiovascular: regular rate and rhythm Gastrointestinal: normoactive bowel sounds, soft, non-tender, non-distended (protuberant) Integumentary: normal Extremities: no cyanosis, no edema, pulses normal, no ischemia or petechiae Neurologic: normal mental status, non-focal exam, pupils equal and round, motor strength normal and Psychiatric: mood appropriate, affect normal CBC and BMP: 07/13/21 08:30 07/14/21 00:54 ABG, PT/INR, D-dimer: ABG ABG pH 7.465 pH Units (7.350-7.450) H 07/14/21 11:05 ABG pCO2 41.6 mm Hg 07/14/21 11:05 ABG pO2 75.2 mm Hg (80.0-90.0) L 07/14/21 11:05 ABG O2 Saturation 96.1 % (95.0-99.0) 07/14/21 11:05 Abnormal lab findings: Abnormal Labs 07/12/21 07/12/21 07/12/21 04:10 04:10 04:17 RDW 16.2 H Baso % (Auto) Lymph # (Auto) 1.1 L Baso # (Auto) Seg Neutrophils % 73.7 H ABG pH ABG pO2 ABG HCO3 ABG Base Excess ABG Hemoglobin Oxyhemoglobin Potassium 3.5 L Carbon Dioxide 21 L Glucose 119 H Calcium Magnesium NT-Pro-B Natriuret Pep 3616 H Urine WBC (Auto) 07/12/21 07/12/21 07/12/21 05:35 07:05 07:17 RDW Baso % (Auto) Lymph # (Auto) Baso # (Auto) Seg Neutrophils % ABG pH ABG pO2 74.7 L ABG HCO3 ABG Base Excess ABG Hemoglobin 11.8 L Oxyhemoglobin 93.3 L Potassium Carbon Dioxide Glucose Calcium Magnesium 2.40 H NT-Pro-B Natriuret Pep Urine WBC (Auto) 28.0 H 07/13/21 07/13/21 07/13/21 08:30 08:30 08:30 RDW 16.5 H Baso % (Auto) 2.9 H Lymph # (Auto) 1.0 L Baso # (Auto) 0.2 H Seg Neutrophils % 72.7 H ABG pH ABG pO2 ABG HCO3 ABG Base Excess ABG Hemoglobin Oxyhemoglobin Potassium 3.5 L Carbon Dioxide Glucose 121 H Calcium 7.2 L D Magnesium 5.50 H NT-Pro-B Natriuret Pep Urine WBC (Auto) 07/14/21 07/14/21 00:54 11:05 RDW Baso % (Auto) Lymph # (Auto) Baso # (Auto) Seg Neutrophils % ABG pH 7.465 H ABG pO2 75.2 L ABG HCO3 29.2 H ABG Base Excess 5.0 H ABG Hemoglobin Oxyhemoglobin 94.2 L Potassium Carbon Dioxide Glucose Calcium 7.7 L Magnesium NT-Pro-B Natriuret Pep Urine WBC (Auto) Allied health notes reviewed: nursing
[2021-07-15] MEDS: ACETAMINOPHEN 325 MG TAB PO PRN (15:04)
--- NOTE | 2021-07-15 20:26 | Consultation ---
DATE OF CONSULTATION: 07/12/2021 PULMONARY CRITICAL CARE NOTE CONSULTING PHYSICIAN: Dr. Lantigua, Emergency Room doctor. REASON FOR CONSULTATION: Eclampsia, acute hypoxemic respiratory failure. CHIEF COMPLAINT AND HISTORY OF PRESENT ILLNESS: The patient is a 36-year-old G6, para 4 female, who had an uncomplicated vaginal delivery on 07/07, presented to the Emergency Room, complaining of chest tightness, lower extremity edema, dyspnea on exertion. Chest x-ray was consistent with pulmonary edema. Her blood pressure was significantly elevated. The overall picture was consistent with an eclampsia, and new onset CHF. She was given some magnesium and labetalol in the Emergency Room. She required bilevel positive airway pressure ventilation to improve her oxygenation. She was ultimately started also on a nitroglycerin drip. Intensive Care Unit admission was then requested, and this was offered. When I stopped by to see her, she was resting in bed. She remained on the nitro drip, going at about 150 mcg per minute. She was complaining of a nitro-type headache. She denied any more nausea and vomiting, was feeling a little bit more comfortable. She denied any gross or streaky hemoptysis. The lower extremity edema is bilateral and of recent development. The patient also has a history of tobacco use and a questionable history of substance abuse. She denied smoking during her , however. This really is as much of the history of presentation as I have. PAST MEDICAL HISTORY: She had preeclampsia during her . PAST SURGICAL HISTORY: Unknown. MEDICATIONS: She was on at the time I stopped by to see her were reviewed. Pertinent medications included the following: She was on Tylenol 650 mg p.o. q. 6 hours p.r.n. mild pain or fevers, nitroglycerin drip was going at 150 mcg per minute, Percocet 5/325, 1 tablet p.o. q. 6 hours p.r.n. moderate pain. DIET: Well-built lady. Actually, she is obese. She did gain weight during her . Denies acute weight loss or gain in the preceding few weeks to months. FAMILY AND SOCIAL HISTORY: Lives in the community. There is a questionable history and a prior admission, I am told of polysubstance abuse. She does smoke, but denied smoking during . FAMILY HISTORY: Otherwise, noncontributory. Denies alcohol abuse. REVIEW OF SYSTEMS: No loss of consciousness. No new onset seizures. No new onset focal weakness. Denies gross hematochezia or melena. Denied gross hematuria or dysuria. No hematemesis, no hemoptysis. She has had a cough, nonproductive. She has complained of some chest tightness and pain. She denies polydipsia or polyuria. Complete 13-system review of system was obtained. Pertinent positives and/or negatives as in body of the history above, otherwise noncontributory. PHYSICAL EXAMINATION: VITAL SIGNS: At presentation in the Emergency Room, revealed vital signs, shows that she was afebrile, temperature 98.9 degrees Fahrenheit, pulse of 95, respiratory rate of 25, described as short of breath with deep inspiration and blood pressure was 164/117, O2 sats were 99%. At the time I saw her, she was, I believe, on 50% FiO2, but had been on BiPAP. GENERAL: She is a young, obese female. Normocephalic, atraumatic. Talking to me in slightly interrupted sentences with mildly increased respiratory effort at rest. HEAD, EYES, EARS, NOSE AND THROAT: Anicteric. No conjunctival erythema. Oropharynx was moist. NECK: No gross jugular venous distention. No thyromegaly. Grossly, there were no palpable lymph nodes in the supraclavicular or submandibular lymph node chains. LUNGS: Auscultation of both lung [place] is significant for posterior inspiratory basilar rales. No wheezing. HEART: Sounds 1 and 2 are heard at the time of my evaluation, regular rate and rhythm without overt rubs or murmurs. ABDOMEN: Soft, full, protuberant. Bowel sounds are positive. Nontender. No palpable hepatosplenomegaly. EXTREMITIES: Without overt digital clubbing or cyanosis. Trace pedal edema. Pedal pulses are 2+ bilaterally. NEUROLOGIC: Pupils were equal, round, about 4 mm, reactive to light. Extraocular muscle movements were intact. She moves all 4 extremities spontaneously. She was alert and oriented x3. SKIN: Normal turgor in the areas examined without overt cellulitis or rash. Please see the wound care nurses' notes for full description of her skin. PSYCHIATRIC: Mood was normal. Affect was appropriate. She had intact judgment and insight. LABORATORY DATA: From my review are as follows: Admission white cell count 6400, hemoglobin 11.3, hematocrit 36.0, platelet count was 270. No manual differential. Arterial blood gas showed a pH of 7.41, pCO2 of 36, pO2 of 75, that was on 100% FiO2 at presentation. Serum sodium was 138, potassium 3.5, chloride 103, bicarbonate 21, BUN 11, creatinine 0.6, glucose was 119. BNP was elevated at 3616. Urinalysis showed moderate leukocyte esterase with 28 white cells per high power field. Coronavirus PCR is pending. Two sets of blood cultures, no growth to date. Urine culture is pending. Chest x-ray was done at presentation. I have reviewed the chest x-ray as well as the radiologist's report. She also had a CT angiogram done, which I have also reviewed. Chest x-ray shows gross cardiomegaly, basilar predominant increased infiltrates, but also with hilar congestion, all consistent with interstitial edema. I would say moderate interstitial edema. CT was negative for filling defects, consistent with pulmonary emboli. She had, I would say, really no significant pleural effusion. No gross pneumothorax, no gross bony fracture. A 2D echocardiogram is pending. The read is pending. ASSESSMENT: 1. Acute hypoxemic respiratory failure, acute respiratory distress syndrome at presentation. 2. Preeclampsia in the period. 3. Peripartum cardiomyopathy. 4. New onset congestive heart failure. 5. Hypertensive emergency. 6. Acute pulmonary edema. 7. Hypokalemia at presentation. PLAN: We will keep her on the supplemental oxygen. We will advise her to use the bilevel positive airway pressure ventilation therapy overnight. Oxygenation is significantly improving. Aspiration precautions will be maintained. We will target O2 saturations of about greater than or equal to about 90%. We will continue on the nitroglycerin drip. Tylenol seems to be working for her. I will schedule oral labetalol and consider a urinary drug screen to help guide antihypertensive medication. Tobacco abstinence has been strongly counseled. We will follow the 2D echo and Cardiology evaluation will be of benefit. She will be placed on GI and DVT prophylaxis. Flu and pneumonia vaccination will be addressed per protocol. Empiric antibiotics will be started. We will go with Rocephin in case of possible urinary tract infection. Antibiotics will be deescalated based on results of clinical and microbiological studies. She is appropriately on GI prophylaxis and will be placed on DVT prophylaxis as you say. Flu and pneumonia vaccination will be addressed per protocol. Thank you very much for the consult. We will follow along and make further recommendations as her picture progresses/becomes clearer. She is critically ill on life-sustaining interventions including noninvasive ventilation and nitroglycerin drip, at very high risk of from cardiopulmonary system decompensation. At this time, I spent about 35-40 minutes of critical care time without overlap and excluding any procedural time that may be necessary. TID: [id number] RECEIPT: [id number] GIOVANI/MIRIAM
[2021-07-16 08:25] VITALS: BP 128/86
--- NOTE | 2021-07-16 08:27 | Progress Note ---
Assessment and Plan A: HD# 5 Acute respiratory failure with hypoxia on admission now maintaining oxygen saturation >95% on room air cardiomyopathy New onset of congestive heart failure Preeclampsia in period, initially with hypertensive urgency s/p magnesium sulfate s/p vaginal after section on 07/04/21 Obesity P: Discharge home today with labetalol 200 mg BID and Hydralazine 50 mg BID with follow up with Director Of Agronomy, Cardiology and Pulmonology in the next week Subjective - Subjective Date of service: 07/16/21 Principal diagnosis: AHRF; Preeclampsia; CMOP; NO-CHF; Hypertensive emergency Interval history: Cardiology and Pulmonology recommendations reviewed and appreciated. Pt feels well this morning. She reports that she has been straightening up her room overnight. She is voiding without difficulty. + flatus. no bowel movement. Decreasing lochia. No telemetry events reported to me overnight. Decreasing lochia. Denies chest pain or dyspnea. Patient reports: appetite normal, voiding normally, ambulating normally Objective - Vital Signs Latest vital signs: Vital Signs Temp Pulse Pulse Resp BP BP Pulse Ox 07/16/21 07:28 98.1 F 69 18 128/86 97 07/16/21 04:54 97.9 F 68 19 110/79 97 07/15/21 20:32 98.6 F 73 18 132/88 96 07/15/21 20:09 18 97 07/15/21 20:06 76 07/15/21 17:10 73 28 H 137/99 96 07/15/21 17:00 76 17 137/99 98 07/15/21 16:30 74 24 137/99 97 07/15/21 16:00 97.8 F 72 108 H 21 122/79 96 07/15/21 15:30 69 20 129/71 95 07/15/21 15:00 75 16 112/67 96 07/15/21 14:30 74 20 112/67 96 07/15/21 14:00 75 16 103/66 97 07/15/21 13:30 77 21 101/61 96 07/15/21 13:22 85 21 109/65 97 07/15/21 13:00 76 07/15/21 12:30 74 109/65 96 07/15/21 12:00 99 F 73 76 17 112/68 118/60 100 07/15/21 11:37 73 112/68 03/22 11:30 71 18 112/68 97 07/15/21 11:00 73 15 106/61 96 07/15/21 10:30 139/99 100 07/15/21 10:00 73 16 139/99 96 07/15/21 09:40 80 128/78 07/15/21 09:30 76 18 128/78 94 07/15/21 09:00 76 16 119/77 97 07/15/21 08:30 77 24 143/99 96 Intake and Output 07/15/21 07/16/21 07/16/21 22:59 06:59 14:59 Intake Total 430 Balance 430 Intake: Oral 430 Other: Total, Intake Amount 140 Voiding Method Bedside Commode # Voids Void 1 Weight 91.6 kg - Exam Breasts: Present: deferred Abdomen: Present: soft (obese ) Uterus: Present: fundal height below umbilicus Extremities: Absent: edema
--- NOTE | 2021-07-16 08:53 | Discharge Summary ---
Providers - Providers Date of Admission: 07/12/21 07:00 Date of discharge: 07/16/21 Attending physician: DAYTON OSEGUERA 07/12/21 07:26 Consult to Physician [CONS] Stat Comment: MANAV/ DAVY Consulting Provider: NIXON QUEEN Physician Instructions: Reason For Exam: post- pre-eclampsia, new CHF with resp failu 07/15/21 08:47 Consult to Physician [CONS] Routine Comment: fax face sheet to office/suzie Consulting Provider: DIEGO ZAFAR Physician Instructions: Reason For Exam: Concern for Peripartum Cardiomyopathy, CHF, Primary care physician: JAVIER MCKOY Hospitalization Reason for admission: other (Pulmonary edema, Preeclampsia, cardiomyopathy ) Other procedures: other ( cardiomyopathy, preeclampsia ) Discharge diagnosis: other (Tubo Ovarian Abscess ) Hospital course: Patient was admitted in hypertensive urgency and acute respiratory failure with pulmonary edema and was noted to have peripartum cardiomyopathy. She was observed in the ICU, started on antihypertensives, given diuretics, and weaned off supplemental oxygen. She was then observed in the telemetry unit where she maintained her oxygen saturation on room air and also maintained her blood pressure in the normal range on labetalol 200 mg twice daily and hydralazine 50 mg twice daily. By hospital day #5 she met discharge criteria. She will follow-up in the office within 1 week, as well as with cardiology and pulmonology within 1 week. Condition at discharge: Stable Disposition: 01 HOME / SELF CARE / HOMELESS - Discharge Diagnoses (1) Acute respiratory failure with hypoxia Status: Acute (2) Hypertensive emergency Status: Acute (3) New onset of congestive heart failure Status: Acute (4) cardiomyopathy Status: Acute (5) Preeclampsia in period Status: Acute (6) Pulmonary edema Status: Acute Qualifiers: Chronicity: acute Qualified Code(s): J81.0 - Acute pulmonary edema (7) Obesity Status: Acute Qualifiers: Serious obesity comorbidity presence: unspecified whether serious comorbidity present Body mass index: BMI 39.0-39.9 Plan - Discharge Medications Prescriptions: Hydralazine HCl 50 mg PO BID #60 tab labetaloL [Labetalol 200mg TAB] 200 mg PO BID #60 tab - Provider Discharge Summary Activity: routine, no sex for 6 weeks, no heavy lifting 4 weeks, no strenuous exercise Diet: routine Instructions: routine Additional instructions: [] Smoking cessation referral if applicable(refer to patient education folder for contact #) [] Refer to [facility]'s [facility] Booklet Call your doctor immediately for: * Fever > 100.5 * Heavy vaginal bleeding ( >1 pad per hour) * Severe persistent headache * Shortness of breath * Reddened, hot, painful area to leg or breast * Drainage or odor from incision. * Keep incision clean and dry at all times and follow doctor's instructions regarding bathing/showering - Follow up plan Follow up: PRIMARY CARE, [Referring] - 7 Days DAYTON OSEGUERA MD [Staff Physician] - 7 Days
[2021-07-16] MEDS: FUROSEMIDE 20 MG/2 ML INJ IV SCH (10:04)
[2021-07-16] MEDS: hydrALAZINE 25 MG TAB PO SCH (10:04)
--- NOTE | 2021-07-16 12:19 | Progress Note ---
Assessment and Plan - Patient Problems (1) Shortness of breath Current Visit: Yes Status: Acute Plan to address problem: Patient presents with shortness of breath and uncontrolled hypertension, presentation consistent with eclampsia. Left ventricular systolic function is borderline decreased with ejection fraction 45 to 50%, mild to moderate mitral regurgitation. Chest x-ray is nondiagnostic for pulmonary edema, has nonspecific bilateral opacities. We will continue labetalol and hydralazine, stable for cardiac discharge on medical therapy. Subjective Date of service: 07/16/21 Principal diagnosis: AHRF; Preeclampsia; CMOP; NO-CHF; Hypertensive emergency Interval history: Patient is comfortable looks and feels better, no acute distress. No new cardiac complaints. Blood pressure has been stable 120s to 130s systolic on current medical therapy. Objective Vital Signs Temp Pulse Pulse Resp BP Pulse Ox 07/16/21 08:00 69 07/16/21 07:28 98.1 F 69 18 128/86 97 07/16/21 04:54 97.9 F 68 19 110/79 97 07/15/21 20:32 98.6 F 73 18 132/88 96 07/15/21 20:09 18 97 07/15/21 20:06 76 07/15/21 17:10 73 28 H 137/99 96 07/15/21 17:00 76 17 137/99 98 07/15/21 16:30 74 24 137/99 97 07/15/21 16:00 97.8 F 72 108 H 21 122/79 96 07/15/21 15:30 69 20 129/71 95 07/15/21 15:00 75 16 112/67 96 07/15/21 14:30 74 20 112/67 96 07/15/21 14:00 75 16 103/66 97 07/15/21 13:30 77 21 101/61 96 07/15/21 13:22 85 21 109/65 97 07/15/21 13:00 76 07/15/21 12:30 74 109/65 96 - Physical Examination General: Appears Well, No Apparent Distress HEENT: Positive: PERRL Neck: Positive: neck supple Cardiac: Positive: Reg Rate and Rhythm Lungs: Positive: clear to auscultation Neuro: Positive: Grossly Intact Abdomen: Positive: Soft Skin: Positive: Clear Extremities: Absent: edema - Allied health notes Allied health notes reviewed: nursing
--- NOTE | 2021-07-16 12:36 | Progress Note ---
Assessment and Plan Acute respiratory failure with hypoxia P/F 71 on admission Preeclampsia in period cardiomyopathy New onset of congestive heart failure Hypertensive emergency Pulmonary edema Hypokalemia - prn supplemental oxygen to keep O2 sats > 90% - continue Labetalol for BP control - prn bronchodilators (OLIVER) with pulm hygiene per RT - avoid nephrotoxins, renally dose all medications - mobility protocols to prevent pressure ulcers - PT/OT as tolerated - Wound care per RN/WCT - accuchecks with glycemic control per SSI for target blood glucose < 180 mg/dL - tobacco abstinence strongly counseled at the bedside - home oxygen evaluation at discharge - GI & VTE prophylaxis - Flu & pneumovax per protocol - continue other care per attending / other consultants - prn analgesia per pain score ... re-evaluate in am & prn Subjective Date of service: 07/16/21 Principal diagnosis: AHRF; Preeclampsia; CMOP; NO-CHF; Hypertensive emergency Interval history: Patient is seen today for: AHRF; Preeclampsia in period; cardiomyopathy; New onset of congestive heart failure; Hypertensive emergency Seen and examined at bedside; 24hour events reviewed; nursing and respiratory care staff consulted; no adverse overnight events reported to me; resting peacefully in bed; Objective Vital Signs - 12hr 07/16/21 07/16/21 07/16/21 04:54 07:28 08:00 Temperature 97.9 F 98.1 F Pulse Rate 68 69 69 Respiratory 19 18 Rate Blood Pressure 110/79 128/86 O2 Sat by Pulse 97 97 Oximetry Constitutional: no acute distress Eyes: non-icteric ENT: oropharynx moist Neck: supple, no lymphadenopathy, no JVD Effort: mildly labored Ascultation: Bilateral: clear Percussion: Bilateral: not dull Cardiovascular: regular rate and rhythm Gastrointestinal: normoactive bowel sounds, soft, non-tender, non-distended (protuberant) Integumentary: normal Extremities: no cyanosis, no edema, pulses normal, no ischemia or petechiae Neurologic: normal mental status, non-focal exam, pupils equal and round, motor strength normal and Psychiatric: mood appropriate, affect normal CBC and BMP: 07/13/21 08:30 07/14/21 00:54 ABG, PT/INR, D-dimer: ABG ABG pH 7.465 pH Units (7.350-7.450) H 07/14/21 11:05 ABG pCO2 41.6 mm Hg 07/14/21 11:05 ABG pO2 75.2 mm Hg (80.0-90.0) L 07/14/21 11:05 ABG O2 Saturation 96.1 % (95.0-99.0) 07/14/21 11:05 Abnormal lab findings: Abnormal Labs 07/12/21 07/12/21 07/12/21 04:10 04:10 04:17 RDW 16.2 H Baso % (Auto) Lymph # (Auto) 1.1 L Baso # (Auto) Seg Neutrophils % 73.7 H ABG pH ABG pO2 ABG HCO3 ABG Base Excess ABG Hemoglobin Oxyhemoglobin Potassium 3.5 L Carbon Dioxide 21 L Glucose 119 H Calcium Magnesium NT-Pro-B Natriuret Pep 3616 H Urine WBC (Auto) 07/12/21 07/12/21 07/12/21 05:35 07:05 07:17 RDW Baso % (Auto) Lymph # (Auto) Baso # (Auto) Seg Neutrophils % ABG pH ABG pO2 74.7 L ABG HCO3 ABG Base Excess ABG Hemoglobin 11.8 L Oxyhemoglobin 93.3 L Potassium Carbon Dioxide Glucose Calcium Magnesium 2.40 H NT-Pro-B Natriuret Pep Urine WBC (Auto) 28.0 H 07/13/21 07/13/21 07/13/21 08:30 08:30 08:30 RDW 16.5 H Baso % (Auto) 2.9 H Lymph # (Auto) 1.0 L Baso # (Auto) 0.2 H Seg Neutrophils % 72.7 H ABG pH ABG pO2 ABG HCO3 ABG Base Excess ABG Hemoglobin Oxyhemoglobin Potassium 3.5 L Carbon Dioxide Glucose 121 H Calcium 7.2 L D Magnesium 5.50 H NT-Pro-B Natriuret Pep Urine WBC (Auto) 07/14/21 07/14/21 00:54 11:05 RDW Baso % (Auto) Lymph # (Auto) Baso # (Auto) Seg Neutrophils % ABG pH 7.465 H ABG pO2 75.2 L ABG HCO3 29.2 H ABG Base Excess 5.0 H ABG Hemoglobin Oxyhemoglobin 94.2 L Potassium Carbon Dioxide Glucose Calcium 7.7 L Magnesium NT-Pro-B Natriuret Pep Urine WBC (Auto) Allied health notes reviewed: nursing
== END 2021-07-16 16:06 | disposition home or self-care (01) | DRG 776 ==
LOC: ED 03:55 → CC1 07:00 → 4A 07-15 17:24
PROVIDERS: ADMIT Obstetrics & Gynecology; ATTEND Obstetrics & Gynecology
PROC: 4A033R1 Measurement of Arterial Saturation, Peripheral, Percutaneous Approach (ICD-10-PCS; principal; 2021-07-12)
PROC: 5A09457 Assistance with Respiratory Ventilation, 24-96 Consecutive Hours, Continuous Positive Airway Pressure (ICD-10-PCS; 2021-07-12)
DX: O90.3 Peripartum cardiomyopathy (principal); O14.95 Unspecified pre-eclampsia, complicating the puerperium; Z20.822 Contact with and (suspected) exposure to COVID-19; O99.53 Diseases of the respiratory system complicating the puerperium; J96.01 Acute respiratory failure with hypoxia; O99.285 Endocrine, nutritional and metabolic diseases complicating the puerperium; O86.20 Urinary tract infection following delivery, unspecified; N39.0 Urinary tract infection, site not specified; O16.5 Unspecified maternal hypertension, complicating the puerperium; I50.9 Heart failure, unspecified; I16.1 Hypertensive emergency; O99.215 Obesity complicating the puerperium
CPT/HCPCS: 36415; 36600; 71045; 71275; 80048; 81001; 82803; 83735; 83880; 84132; 84484; 84550; 85025; 87040; 87086; 93005; 93010; 93306; 94760; G0378; J3490; C8929; J0360; J0696; J1940; J3475; Q9967; U0003